=== PATIENT | female | born 1995 | race Caucasian/White ===

== ENCOUNTER 2020-01-30 08:00 | Emergency (ER) | payer MEDICAID, SELFPAY ==
[2020-01-30 08:01] VITALS: BP 135/96; PULSE 92; RESP 14; TEMP 36.9; O2SAT 100; BMI 16.6
--- NOTE | 2020-01-30 08:08 | NURSING ---
NO OLD EKGS
--- NOTE | 2020-01-30 08:25 | RAD_ITS ---
STUDY: X-RAY CHEST REASON FOR EXAM: Female, 24 years old. BACK AND CHEST PAIN SINCE THIS AM. PT WAS MOVING THIS LAST WEEKEND BUT NO KNOWN INJURY TECHNIQUE: Single AP portable view of the chest. COMPARISON: None. FINDINGS: EKG electrodes are seen. Hyperinflation. The lungs are clear. There is no demonstrated pleural abnormality. Normal size heart. Normal mediastinum and harry. Normal visualized pulmonary arteries. Normal visualized aortic arch and descending thoracic aorta. Normal visualized thoracic spine. Normal visualized ribs, clavicles, and shoulders. There is no demonstrated abnormality of the visualized soft tissue structures of the upper abdomen. RAD/Chest 1 View IMPRESSION: Hyperinflation. The lungs are clear. Electronically Signed: Moody Washington, at 8:51 EST , Service support ,
[2020-01-30 08:44] LABS: Absolute Lymphocyte Count 2.25 X10^3/uL (0.83-4.51); Absolute Neutrophil Count 4.1 X10^3/uL (2.0-7.7); Basophil# 0.08 X10^3/uL; Basophil% 1.1 % (0-1); Eosinophil# 0.35 X10^3/uL; Eosinophils% 4.7 % (0-5); Hematocrit 42.9 % (37-47); Hemoglobin 14.7 g/dL (12.0-15.0); Lymphocyte # 2.25 X10^3/ul (4.0); Lymphocyte % 30.4 % (19-41); Mean Corp Hgb Conc 34.3 g/dL (32-36); Mean Corpuscular Volume 87.6 fL (81-99); Mean Platelet Vol. 11.3 fl (6.2-12.0); Monocyte# 0.58 X10^3/uL; Monocyte% 7.8 % (0-10); NRBC Flagged by Analyzer 0 % (0-5); Neutrophil # 4.13 X10^3/uL (2.7-7.7); Neutrophil % 55.7 % (47-70); Platelet Count 331 K/mm3 (150-450); RBC Distribution Width CV 12.1 % (11.6-14.6); White Blood Count 7.4 K/mm3 (4.4-11.0)
[2020-01-30 08:57] LABS: Anion Gap 7 (5-15); BUN 10 mg/dL (7-18); BUN/Creat Ratio 11.2 RATIO (10-20); Calcium,Total 8.3 mg/dL (8.5-10.1); Chloride 113 mmol/L (98-107); Creatinine, Serum 0.89 mg/dL (0.55-1.02); EST Glomerular Filtration Rate 84 mL/min (>60); Est Glom Filt Rate - Afr Amer 102 mL/min (>60); Glucose 79 mg/dL (74-106); Potassium 3.5 mmol/L (3.5-5.1); Sodium Level 141 mmol/L (136-145)
[2020-01-30 09:45] LABS: D-Dimer Quantitative (DVT/PE) <= 0.27 FEU/ug/m (0.27-0.49)
--- NOTE | 2020-01-30 10:08 | ED.VIS.GEN ---
History of Present Illness Chief Complaint: Back Detail of Chief Complaint: Right scapular pain that radiated anteriorly Informant: Patient Onset: Hours Context: Sudden Onset Timing: Continuous Quality: Pain Location: Right scapula radiating to anterior right chest Current Severity: Mild Maximum Severity: Severe Worsened by: Nothing Relieved by: Nothing Associated Symptoms: [place] warm and mild shortness of breath Narrative: Patient is a 24-year-old woman who has no significant past medical history. She does vape. She states she was awakened from sleep with abrupt onset of right scapular pain that radiated anteriorly. She states she felt warm and may be slightly sweaty and slightly nauseated. Pain had been persistent for an hour. Since she still was having pain when her woke up she decided to present to the emergency department. She has no history of PE or DVT. She is on control pills. She denies leg pain, swelling discoloration. She has no history of pneumothorax. She denies intolerance to greasy or fried foods. She denies infectious symptoms. She denies contact with anyone that is been ill recently. Prior similar symptoms: No Recent Illness/Hospitalization: No - Past Medical History (1) No significant past medical history Status: Acute Past Medical History - Allergies and Home Meds Allergies/Adverse Reactions: Allergies risperidone [From Risperdal] Allergy (Verified 01/30/20 08:03) Swelling Sulfa (Sulfonamide Antibiotics) Allergy (Verified 01/30/20 08:03) Anaphylaxis Primary Care Physician: Care Physician,No Primary [Primary Care Provider] - Prior records reviewed: No Past Medical History: None Surgical History: no surgical history Smoking Status: Current every day smoker - States she vapes. Alcohol: None Drugs: None Review of Systems General: Denies: Chills, Fever, Malaise, Subjective, Sweats Eyes: Denies: Visual changes - bilaterally, Blurred Vision - bilaterally ENT: Denies: Rhinorrhea, Sore throat Cardiovascular: Reports: Chest pain - Right anterior. Denies: Palpitations Respiratory: Reports: Dyspnea, Paroxysmal nocturnal dyspnea. Denies: Cough, Sputum, Dyspnea on exertion, Orthopnea Gastrointestinal: Reports: Nausea. Denies: Abdominal pain, Vomiting, Diarrhea, Melena, Hematochezia Genitourinary: Reports: - - No history of renal or ureterolithiasis. Denies: Dysuria, Hematuria, Frequency Musculoskeletal: Reports: Back pain. Denies: Myalgias, Arthralgias, Neck pain, Swelling, Extremity Pain Skin: Denies: Rash, Wounds Neurological: Denies: Headache, Weakness, Parasthesia Endocrine: Denies: Polyuria, Polydipsia Hematologic: Denies: Easy bruising, Easy bleeding Physical Exam Vital Signs/Narrative: Vital Signs Temp Pulse Resp BP Pulse Ox 01/30/20 08:01 98.4 F 92 14 135/96 H 100 Inital Vital Signs reviewed: Yes General: Well nourished, Well developed, No Acute Distress Head: Normocephalic, Atraumatic Eyes: Perrl, EOMI ENT: Moist mucous membranes, No rhinorrhea Neck: Supple, Nontender, No lymphadenopathy, No JVD Cardiovascular: Regular rate, Regular rhythm, No murmurs, Normal S1, Normal S2 Respiratory: No distress, CTA bilaterally, Chest nontender Abdomen: Soft, Nontender, Nondistended, Normal bowel sounds Back: Nontender, Normal Inspection. Negative for: CVA tenderness, Spinal tenderness Extremities: Nontender, No edema, - - There is no asymmetry, swelling, discoloration, leg vein distention, palpable cords or tenderness along the distribution of the deep venous system. Skin: Normal color, No rash, No Trauma. Negative for: Cyanosis, Diaphoresis, Jaundice Neurological: Alert, Oriented x3, Cranial nerves II-XII grossly intact, Normal Strength, Normal Sensation Psychological: Normal affect, Normal Mood Diagnostic/Tx/Re-eval Chest X-Ray - ED: 2 View, Read by ED Physician, Read by Radiologist, - - Patient has evidence of hyper aeration. There is no evidence of effusion, pneumothorax or infiltrate. Cardiac silhouette is normal. Osseous structures are normal. Impressions Chest X-Ray 01/30/20 08:25 IMPRESSION: Hyperinflation. The lungs are clear. Electronically Signed: Moody Padmini, at 8:51 EST , Service support , 01/30/20 08:25 Chest 1 View [RAD] Stat Laboratory Results 01/30/20 01/30/20 01/30/20 08:35 08:35 08:35 WBC 7.4 RBC 4.90 Hgb 14.7 Hct 42.9 MCV 87.6 MCH 30.0 MCHC 34.3 RDW Std Deviation 39.0 RDW Coeff of Brandee 12.1 Plt Count 331 MPV 11.3 Immature Gran % (Auto) 0.300 Neut % (Auto) 55.7 Lymph % (Auto) 30.4 [place] % (Auto) 7.8 Eos % (Auto) 4.7 Baso % (Auto) 1.1 H Absolute Neuts (auto) 4.1 Absolute Lymphs (auto) 2.25 Nucleated RBC % 0 D-Dimer Quant (PE/DVT) <= 0.27 Sodium 141 Potassium 3.5 Chloride 113 H Carbon Dioxide 21.0 Anion Gap 7 BUN 10 Creatinine 0.89 Estim Creat Clear Calc 71.00 Est GFR (MDRD) Af Amer 102 Est GFR (MDRD) Non-Af 84 BUN/Creatinine Ratio 11.2 Glucose 79 Calcium 8.3 L - EKG Initial EKG Interpretation: Sinus Rhythm - Normal sinus rhythm with respiratory variance. Ventricular rate of 73. CT interval 116 ms. QS duration 88 ms. QT duration 3 to 94 ms. [place] to the right. - Medical Decision Making Diagnosis includes pneumothorax, pneumonia, pulmonary embolus, atypical presentation for aortic dissection. Chest x-ray did not reveal evidence of widened mediastinum, pneumothorax or any pulmonary cause. With a negative D-dimer the likelihood for dissection is less than 1%. PE has been ruled out. She is not anemic. Electrolyte normal. Renal function normal. Patient was informed the cause of her pain is unknown. She was discharged home to follow-up with her physician if no improvement in 3 to 5 days. She was prescribed anti-inflammatory for her discomfort. ED Disposition - Plan for ED Patient: Disposition: Home or Assisted Living Diagnosis: Pain of right scapula, Right-sided chest pain Instructions: ED Pain, Acute, Uncertain Cause Prescriptions: Naproxen [Naprosyn] 500 mg PO BID #14 tab Transmission Status: Pending to [facility]/pharmacy #[id number] Referrals: Care Physician,No Primary [Primary Care Provider] - Additional Instructions: Follow-up with your primary care provider if no improvement in 3 to 5 days. The name of your primary care provider is printed on your insurance card.
[2020-01-30 10:29] VITALS: BP 117/82; PULSE 77; RESP 15; O2SAT 100
--- NOTE | 2020-01-30 10:30 | ED.RN ---
IV DC'ED, CATHETER INTACT, SMALL GAUZE DRESSING PLACED. DISCHARGE INSTRUCTIONS GIVEN TO AND REVIEWED WITH PATIENT, PATIENT DENIES QUESTIONS OR CONCERNS AND VOICES UNDERSTANDING OF DISCHARGE INSTRUCTIONS. PT AMBULATES OUT OF ROOM WITHOUT DIFFICULTY.
== END 2020-01-30 10:30 | disposition home or self-care (01) ==
PROVIDERS: Emergency Provider Emergency Medicine
DX: M25.511 Pain in right shoulder (principal); R07.89 Other chest pain; F17.290 Nicotine dependence, other tobacco product, uncomplicated
CPT/HCPCS: 71045; 80048; 85025; 85379; 99283; A4216

== ENCOUNTER 2020-03-09 20:56 | Emergency (ER) | payer MEDICAID, SELFPAY ==
[2020-03-09 20:57] VITALS: BP 128/100; PULSE 109; RESP 16; TEMP 37.3; O2SAT 99; BMI 17.2
--- NOTE | 2020-03-09 22:08 | CT_ITS ---
LLQ PAIN/CONSTIPATION/BLOOD IN STOOL. Hx of seizures and cardiac ablation. Not TECHNIQUE: Helically acquired images were obtained of the abdomen and pelvis following IV contrast. A radiation dose optimization technique was used for this scan. IV Contrast dosage and agent: 75mL Isovue-370 Oral contrast: None. COMPARISON: None FINDINGS: # of images incl. paperwork: 333 LOWER CHEST: Lung bases are clear. No cardiomegaly or pericardial effusion observed. LIVER: Homogeneous. No focal mass. GALLBLADDER AND BILIARY TREE: No calcified gallstones. There is no gallbladder distension or wall edema. No intra- or extrahepatic biliary ductal dilation. KIDNEYS AND URETERS: Extrarenal pelvis is seen bilaterally but greater on the left. No stones are seen within the ureters. ADRENAL GLANDS: Non-enlarged. SPLEEN: Normal size without focal cystic or solid mass. PANCREAS: No focal cystic or solid mass. BOWEL: The stomach is poorly distended Small bowel filled but not dilated. No significant wall thickening Retained fecal material is seen throughout the colon. This can be seen with constipation. Correlate clinically The appendix is not visualized no diverticulitis LYMPH NODES: No enlarged mesenteric or retroperitoneal lymph nodes. PERITONEUM: No ascites or free air. No other fluid collection. VESSELS: Aorta is non-dilated. URINARY BLADDER: Incompletely distended, otherwise grossly unremarkable. REPRODUCTIVE ORGANS: No pelvic masses or pelvic ascites. ABDOMINAL WALL: No discrete abdominal or pelvic wall hernia observed. BONES: No acute osseous abnormality CT/Abdomen/Pelvis W IV Cont ONLY IMPRESSION: Prominent amount of retained fecal material throughout the colon. This can be seen with constipation No diverticulitis Individualized dose optimization techniques were used for this CT. at 2351 Reported and signed by: Shira Lewis DO Electronically Signed: Shira Lewis DO at 23:50 EST Tel , Service support ,
[2020-03-09] MEDS: 0.9% Normal Saline 1,000 ML 999 ML IV (22:19)
[2020-03-09] MEDS: Ondansetron 4 MG/2 ML Vial IV (22:20)
[2020-03-09 22:26] LABS: Absolute Lymphocyte Count 3.21 X10^3/uL (0.83-4.51); Absolute Neutrophil Count 3.6 X10^3/uL (2.0-7.7); Basophil# 0.06 X10^3/uL; Basophil% 0.8 % (0-1); Eosinophil# 0.18 X10^3/uL; Eosinophils% 2.3 % (0-5); Hematocrit 38.3 % (37-47); Hemoglobin 13.2 g/dL (12.0-15.0); Lymphocyte # 3.21 X10^3/ul (4.0); Lymphocyte % 41.3 % (19-41); Mean Corp Hgb Conc 34.5 g/dL (32-36); Mean Corpuscular Hgb 29.7 pg (27.0-32.0); Mean Corpuscular Volume 86.3 fL (81-99); Mean Platelet Vol. 11.4 fl (6.2-12.0); Monocyte# 0.69 X10^3/uL; Monocyte% 8.9 % (0-10); NRBC Flagged by Analyzer 0 % (0-5); Neutrophil # 3.61 X10^3/uL (2.7-7.7); Neutrophil % 46.4 % (47-70); Platelet Count 306 K/mm3 (150-450); RBC Distribution Width CV 11.9 % (11.6-14.6); RBC Distribution Width SD 37.9 fl (35.1-43.9); Red Blood Count 4.44 M/mm3 (4.2-5.4); White Blood Count 7.8 K/mm3 (4.4-11.0)
[2020-03-09 22:53] LABS: ALB/GLOB Ratio 1.4 RATIO (0.9-2.4); AST(SGOT) 9 U/L (15-37); Alanine Aminotransfer ALT/SGPT 13 U/L (13-56); Albumin, Serum 3.8 g/dL (3.2-5.0); Alkaline Phosphatase 69 U/L (45-117); Anion Gap 5 (5-15); BUN 12 mg/dL (7-18); BUN/Creat Ratio 12.4 RATIO (10-20); Calcium,Total 8.2 mg/dL (8.5-10.1); Chloride 112 mmol/L (98-107); Creatinine, Serum 0.97 mg/dL (0.55-1.02); EST Glomerular Filtration Rate 76 mL/min (>60); Est Glom Filt Rate - Afr Amer 92 mL/min (>60); Estimated Creatinine Clearance 67.35 ml/min; Globulin 2.8 g/dL (2.2-4.2); Glucose 86 mg/dL (74-106); Lipase 170 U/L (73-393); Potassium 3.6 mmol/L (3.5-5.1); Protein, Total 6.6 g/dL (6.4-8.2); Sodium Level 141 mmol/L (136-145)
--- NOTE | 2020-03-09 22:55 | ED.DCSUM_ITS ---
History of Present Illness Chief Complaint: Constipation Informant: Patient - Abdominal Pain/Flank Pain Onset: Today Timing: Continuous Quality: Cramping Location: LLQ Narrative: Patient is a 24-year-old female with history of SVT and epilepsy, [place] seizures, presenting with abdominal pain and constipation. Patient states she has been feeling constipated since Tuesday but started having stomach pain today. States the pain is an issue in the center of her stomach but instead localized more to her left lower quadrant. She did take some [id number] laxatives and did have a bowel movement today. When this happened she did have bright red blood streaking the stool. She then started to feel nauseous and shaky with this. She is also had worsening pain in her left lower quadrant. She describes as cramping in nature. She had some mild associated nausea since yesterday. She denies any fever or chills. She denies any personal history of family history of inflammatory bowel disease. She denies any lightheadedness. No other complaints at this time. Past Medical History - Allergies and Home Meds Allergies/Adverse Reactions: Allergies risperidone [From Risperdal] Allergy (Verified 03/09/20 20:59) Swelling Sulfa (Sulfonamide Antibiotics) Allergy (Verified 03/09/20 20:59) Anaphylaxis Primary Care Physician: Karlee Barnes MD [Primary Care Provider] - Past Medical History: - - Epilepsy, SVT Surgical History: no surgical history Lives: Spouse/ Significant Other Smoking Status: Current every day smoker Review of Systems General: Denies: Chills, Fever, Sweats Eyes: Denies: Visual changes - bilaterally, Diplopia ENT: Denies: Rhinorrhea, Sore throat Cardiovascular: Denies: Chest pain, Palpitations Respiratory: Denies: Dyspnea, Cough, Dyspnea on exertion Gastrointestinal: Reports: Abdominal pain, Nausea, Constipation, - - Bright red blood per rectum. Denies: Vomiting, Diarrhea, Melena, Hematochezia Genitourinary: Denies: Dysuria, Hematuria, Frequency Musculoskeletal: Denies: Back pain, Extremity Pain Skin: Denies: Rash, Wounds Neurological: Denies: Headache, Weakness, Numbness Physical Exam Vital Signs/Narrative: Vital Signs Temp Pulse Resp BP Pulse Ox 03/09/20 20:57 99.2 F H 109 H 16 128/100 H 99 Inital Vital Signs reviewed: Yes General: Well nourished, Well developed, No Acute Distress Head: Normocephalic, Atraumatic Eyes: Perrl, EOMI ENT: Moist mucous membranes, No rhinorrhea Neck: Supple, Nontender Cardiovascular: Regular rate, Regular rhythm, No murmurs Respiratory: No distress, CTA bilaterally, Chest nontender Abdomen: Soft, Nondistended, Normal bowel sounds, Tender - Left lower quadrant. Negative for: Guarding, Rebound tenderness Back: Nontender, Normal Inspection. Negative for: CVA tenderness Extremities: Nontender, No edema Skin: Normal color, No rash Neurological: Alert, Oriented x3, Cranial nerves II-XII grossly intact, Normal Strength, Normal Sensation Psychological: Normal affect, Normal Mood Diagnostic/Tx/Re-eval Clinical Impression(s) from Imaging Studies Abdomen/Pelvis CT 03/09/20 22:08 IMPRESSION: Prominent amount of retained fecal material throughout the colon. This can be seen with constipation No diverticulitis Individualized dose optimization techniques were used for this CT. at 2351 Reported and signed by: Shira Lewis DO Electronically Signed: Shira Lewis DO at 23:50 EST Tel , Service support , Laboratory Data 03/09/20 03/09/20 03/09/20 22:19 22:19 23:00 WBC 7.8 RBC 4.44 Hgb 13.2 Hct 38.3 MCV 86.3 MCH 29.7 MCHC 34.5 RDW Std Deviation 37.9 RDW Coeff of Brandee 11.9 Plt Count 306 MPV 11.4 Immature Gran % (Auto) 0.300 Neut % (Auto) 46.4 L Lymph % (Auto) 41.3 H [place] % (Auto) 8.9 Eos % (Auto) 2.3 Baso % (Auto) 0.8 Absolute Neuts (auto) 3.6 Absolute Lymphs (auto) 3.21 Nucleated RBC % 0 Sodium 141 Potassium 3.6 Chloride 112 H Carbon Dioxide 24.0 Anion Gap 5 BUN 12 Creatinine 0.97 Estim Creat Clear Calc 67.35 Est GFR (MDRD) Af Amer 92 Est GFR (MDRD) Non-Af 76 BUN/Creatinine Ratio 12.4 Glucose 86 Calcium 8.2 L Total Bilirubin 0.30 AST 9 L ALT 13 Alkaline Phosphatase 69 Total Protein 6.6 Albumin 3.8 Globulin 2.8 Albumin/Globulin Ratio 1.4 Lipase 170 Urine Color Yellow Urine Clarity Clear Urine pH 6.0 Ur Specific [place] 1.015 Urine Protein Negative Urine Glucose (UA) Normal Urine Ketones Negative Urine Occult Blood Negative Urine Nitrite Negative Urine Bilirubin Negative Urine Urobilinogen Normal Ur Leukocyte Esterase 25 H Urine RBC 0 SEEN Urine WBC 0-5 SEEN Ur Squamous Epith Cells 0-5 SEEN Urine Bacteria 0 SEEN Urine Mucus 1+ Urine Test Negative - Medical Decision Making Patient is evaluated for worsening pain in her left lower quadrant. Associated constipation and today had bright red blood per rectum with a bowel movement. Her abdomen is tender in the left lower quadrant she is mildly tachycardic. Likely this is just hemorrhoidal bleeding with constipation however diverticulitis another acute infectious on the differential so therefore I will check blood work and a CT scan. Patient lab work is largely unremarkable and CT shows moderate fecal retention but no other acute process. Patient is already on MiraLAX and her doctor had prescribed her discoidal which did not start taking. We will also give her prescription for mag citrate to use as needed. Patient is counseled on symptomatic hemorrhoidal treatment. Patient is counseled on signs and symptoms requiring return to the emergency room. Patient verbalizes agreement and understand this plan. Patient discharged home in stable and improved condition. ED Disposition - Plan for ED Patient: Disposition: Home or Assisted Living Diagnosis: Constipation, Bleeding hemorrhoid Instructions: ED Constipation (Adult), ED Hemorrhoids Prescriptions: Magnesium Citrate [Citrate Of Magnesia] 300 ml PO X1 #1 bottle Transmission Status: Pending to [id number] Referrals: Karlee Barnes MD [Primary Care Provider] -
[2020-03-09 23:11] LABS: Bacteria 0 SEEN /hpf (None Seen); Red Blood Cells-Urine 0 SEEN /hpf (0-5)
[2020-03-09 23:15] LABS: Color, Urine Yellow (Yellow); Glucose, Dipstick Normal (Normal); Ketone-Dipstick Negative (Negative); Leukocyte Esterase-Dipstick 25 /ul (Negative); Nitrite-Dipstick Negative (Negative); Occult Blood-Urine Negative /ul (Negative); Protein-Dipstick Negative (Negative); Specific Gravity, Urine 1.015 (1.002-1.030); Urine Bilirubin Dipstick Negative (Negative); Urine Clarity Clear (Clear); Urine Urobilinogen Normal (Normal)
[2020-03-09 23:18] LABS: Internal QC Validated? YES +Cl - CLEAR BKGD; Pregnancy, Urine Negative Negative
[2020-03-09 23:20] LABS: Squamous Epithelial Cells - UA 0-5 SEEN /hpf (5-10); White Blood Cells 0-5 SEEN /hpf (0-5)
[2020-03-09 23:21] LABS: Mucous, Urine 1+ /hpf (<or=2+)
[2020-03-10 00:35] VITALS: BP 111/82; PULSE 73; RESP 16
== END 2020-03-10 00:36 | disposition home or self-care (01) ==
PROVIDERS: Emergency Provider Emergency Medicine; PCP Counselor Mental Health
DX: K59.00 Constipation, unspecified (principal); K64.9 Unspecified hemorrhoids; F17.200 Nicotine dependence, unspecified, uncomplicated
CPT/HCPCS: 74177; 80053; 81001; 81025; 83690; 85025; 96361; 96374; 99283; J7030; Q9967; A4216; J2405

== ENCOUNTER 2020-03-20 22:40 | Emergency (ER) | payer MEDICAID, SELFPAY ==
[2020-03-20 22:43] VITALS: BP 127/100; PULSE 93; RESP 20; TEMP 37.2; O2SAT 95; BMI 16.9
[2020-03-20] MEDS: 0.9% Normal Saline 1,000 ML 1000 ML IV (23:04)
[2020-03-20 23:06] LABS: Absolute Lymphocyte Count 3.08 X10^3/uL (0.83-4.51); Absolute Neutrophil Count 3.7 X10^3/uL (2.0-7.7); Basophil# 0.09 X10^3/uL; Basophil% 1.1 % (0-1); Eosinophil# 0.21 X10^3/uL; Eosinophils% 2.7 % (0-5); Hematocrit 40.2 % (37-47); Hemoglobin 13.5 g/dL (12.0-15.0); Lymphocyte # 3.08 X10^3/ul (4.0); Lymphocyte % 39.2 % (19-41); Mean Corp Hgb Conc 33.6 g/dL (32-36); Mean Corpuscular Hgb 29.1 pg (27.0-32.0); Mean Corpuscular Volume 86.6 fL (81-99); Mean Platelet Vol. 11.3 fl (6.2-12.0); Monocyte# 0.71 X10^3/uL; NRBC Flagged by Analyzer 0 % (0-5); Neutrophil # 3.74 X10^3/uL (2.7-7.7); Neutrophil % 47.7 % (47-70); Platelet Count 347 K/mm3 (150-450); RBC Distribution Width SD 38.5 fl (35.1-43.9); Red Blood Count 4.64 M/mm3 (4.2-5.4); White Blood Count 7.9 K/mm3 (4.4-11.0)
[2020-03-20 23:21] LABS: ALB/GLOB Ratio 1.3 RATIO (0.9-2.4); AST(SGOT) 5 U/L (15-37); Alanine Aminotransfer ALT/SGPT 14 U/L (13-56); Albumin, Serum 4.1 g/dL (3.2-5.0); Alkaline Phosphatase 81 U/L (45-117); Anion Gap 7 (5-15); BUN 9 mg/dL (7-18); BUN/Creat Ratio 10.8 RATIO (10-20); Calcium,Total 8.2 mg/dL (8.5-10.1); Chloride 112 mmol/L (98-107); Creatinine, Serum 0.84 mg/dL (0.55-1.02); EST Glomerular Filtration Rate 90 mL/min (>60); Est Glom Filt Rate - Afr Amer 109 mL/min (>60); Estimated Creatinine Clearance 76.29 ml/min; Globulin 3.1 g/dL (2.2-4.2); Glucose 91 mg/dL (74-106); Potassium 3.1 mmol/L (3.5-5.1); Protein, Total 7.2 g/dL (6.4-8.2); Sodium Level 142 mmol/L (136-145)
--- NOTE | 2020-03-20 23:45 | ED.RN ---
Addendum entered by Jazmín Granados RN 03/20/20 23:52: Seizure activity stopped at 1152pm. Original Note: Patient having a seizure and at bedside. Ativan 1mg given at 11:49pm. Airway continues to stay clear. No vomiting.
[2020-03-20] MEDS: LORazepam 2 MG/ML Syringe 1 MG IV (23:49)
--- NOTE | 2020-03-20 23:53 | ED.DCSUM_ITS ---
- ER Visit Summary Date of Service: 03/20/20 Chief Complaint: Seizure History of Present Illness: The patient is a 24 F who presents with a seizure that occurred today. Patient states this lasted at least 5 minutes. Patient states it is similar to prior seizures. Patient states she does not remember much about the seizure. Patient states she was told it was generalized and tonic-clonic. Patient did not bite her tongue. Patient denies any incontinence of urine or stool. Patient does admit to some back pain and muscle aches which are typical after her seizures. Patient denies any headaches. Patient denies any nausea or vomiting. Patient denies any recent fevers or chills. Physical Examination: Vital signs are stable. Patient is afebrile. Patient is in no acute distress. Oral mucosa is pink and moist. Neck is supple. Trachea is midline. There is no JVD noted. Heart was regular rate and rhythm. Lungs are clear and equal bilaterally. Abdomen is soft. Bowel sounds are normal. There is no tenderness. There is no rebound or guarding noted. Skin is warm dr y. Cranial nerves II through XII are intact. There are no focal motor or sensory deficits noted. Extremities are intact. There is no calf tenderness or edema. Test Results: CBC and comprehensive metabolic profile were obtained. Potassium was 3.1. The remaining labs were within normal limits. Topamax level was ordered but this is a send out and will not be returned tonight. Emergency Department Course and Treatment: Patient was given a dose of oral potassium here. Patient had a witnessed seizure here in the emergency depar tment. Patient states she felt like her seizure was coming on. Patient's boyfriend was in the room with her who helped her into the bed. Patient started shaking after that. Patient was given a dose of Ativan. Patient stopped having a seizure. Patient is awake and alert. Patient is answering questions. Patient feels better. Patient was advised that her Topamax level will not be back tonight and she needs to follow-up with her primary care physician and neurologist for this result. Patient understands and is agreeable with the plan. All questions were answered. Disposition: Discharge home Impression: Seizure disorder with breakthrough seizure This note was generated with Material Mixation software. It may contain incorrect words, spelling, and punctuation that were not noted in review of the chart prior to signing ED Disposition - Plan for ED Patient: Disposition: Home or Assisted Living Diagnosis: Breakthrough seizure Instructions: ED Seizure, Recurrent (Adult) Referrals: Karlee Barnes MD [Primary Care Provider] - 3-5 Days
--- NOTE | 2020-03-20 23:54 | ED.RN ---
Pt seizures stopped. pt moaning through the seizure. suction set up at bedside.
[2020-03-20 23:56] VITALS: BP 114/93; PULSE 108; RESP 22; O2SAT 98
[2020-03-21 00:05] VITALS: BP 111/84; PULSE 106; RESP 21; O2SAT 98
[2020-03-21 00:15] VITALS: BP 109/78; PULSE 96; RESP 17; O2SAT 99
--- NOTE | 2020-03-21 00:41 | ED.RN ---
Pt very chatty. pt up to bathroom. denies any complaints at this time. no more seizure activity at this time.
[2020-03-21 01:02] VITALS: BP 114/81; PULSE 103; RESP 18; O2SAT 99
[2020-03-25 15:01] LABS: Topiramate 1.8 ug/mL (2.0-25.0)
== END 2020-03-21 01:04 | disposition home or self-care (01) ==
PROVIDERS: Emergency Provider Emergency Medicine; PCP Counselor Mental Health
DX: G40.909 Epilepsy, unspecified, not intractable, without status epilepticus (principal); Z79.899 Other long term (current) drug therapy
CPT/HCPCS: 80053; 80201; 85025; 96361; 96374; 99285; J7030; A4216

== ENCOUNTER 2020-04-13 20:45 | Emergency (ER) | payer MEDICAID, SELFPAY ==
[2020-04-13 20:45] VITALS: BP 125/95; PULSE 119; RESP 18; TEMP 37.1; O2SAT 100; BMI 16.6
--- NOTE | 2020-04-13 21:11 | CT_ITS ---
STUDY: CT ABDOMEN AND PELVIS WITH CONTRAST REASON FOR EXAM: Female, 24 years old. Abdominal pain -- IV PO Contrast RADIATION DOSAGE (If Supplied By Facility): CTDIvol = ( 10.99 ) mGy, DLP = ( 250.10 ) mGycm TECHNIQUE: Transaxial images were obtained from the dome of the diaphragm to the symphysis pubis with oral contrast. Oral and amp; IV Gastrografin and amp; 100mL Isovue-370 was administered. Sagittal and coronal images were reconstructed. Individualized dose optimization techniques were used for this CT. COMPARISON: 03/09/2020. FINDINGS: The visualized lung bases are unremarkable. The visualized portions of the heart are within normal limits. Normal liver. Normal gallbladder and extrahepatic biliary system. Normal spleen. Normal pancreas. Normal bilateral adrenal glands. Normal right kidney. Normal left kidney. Normal visualized stomach. There is fluid throughout the entire small and large bowel as far as the rectosigmoid. This is an atypical appearance consistent with nonspecific enterocolitis and diarrheal disorders. No evidence for obstruction. Normal appendix. Normal abdominal aorta. Normal inferior vena cava. Normal retroperitoneum. Normal urinary bladder. Normal visualized uterus. Normal abdominal wall. Normal osseous structures. CT/Abdomen/Pelvis WITH Contrast IMPRESSION: Small and large bowel are completely filled with fluid consistent with nonspecific enterocolitis and diarrheal disorders. Electronically Signed: Anoop Arambula MD at 23:36 EST , Service support ,
--- NOTE | 2020-04-13 21:12 | ED.DCSUM_ITS ---
- ER Visit Summary Date of Service: 04/13/20 Chief Complaint: Abdominal pain History of Present Illness: The patient is a 24 F presenting with abdominal pain. Patient states she has been having abdominal pain for over a month. She has been seen by her primary care provider who has referred her to GI. Her appointment is in a couple of weeks. She is scheduled to have an upper and lower GI x-ray tomorrow. She states that she has been on a liquid diet because of this test and then took mag citrate tonight. She states she did not have a bowel movement after the mag citrate but started having abdominal cramping. She states she had a normal bowel movement earlier today. She denies blood in her stool. Denies fever. Denies urinary complaints. Denies other complaints. Physical Examination: Vitals are stable. Patient is afebrile. Alert no acute distress. HEENT exam is unremarkable. Neck is supple. Lungs are clear and equal bilaterally. Heart is regular rate and rhythm. Abdomen is soft diffuse tenderness with no rebound or guarding Extremities are unremarkable. Skin is warm and dry. Remainder of exam is unremarkable. Emergency Department Course and Treatment: Patient was given IV fluids, Zofran. CBC, chemistries unremarkable. Urinalysis unremarkable. hCG negative. CT abdomen pelvis shows small and large bowel are completely filled with fluid consistent with nonspecific enterocolitis and diarrheal disorders. Patient took mag citrate just prior to arrival. She had diarrhea while in the emergency department. She states it has now slowed down on re-evaluation and she is feeling improved. She was given Bentyl with improvement of her abdominal cramping. She will follow-up with GI testing and her GI appointment. She is advised signs and symptoms for which to return to the ED. Disposition: Discharge home Impression: Abdominal pain This note was generated with AD[employer] dictation software. It may contain incorrect words, spelling, and punctuation that were not noted in review of the chart prior to signing ED Disposition - Plan for ED Patient: Instructions: ED Abdominal Pain Unkn Cause Fem Prescriptions: Dicyclomine HCl [Bentyl] 20 mg PO TIDAC #20 cap Prescription Printed Referrals: NOT,DEFINED [NON-STAFF] -
[2020-04-13] MEDS: 0.9% Normal Saline 1,000 ML 1000 ML IV (21:28)
[2020-04-13] MEDS: Ondansetron 4 MG/2 ML Vial IV (21:28)
[2020-04-13 21:32] LABS: Bacteria 0 SEEN /hpf (None Seen); Mucous, Urine 0 SEEN /hpf (<or=2+); Red Blood Cells-Urine 0 SEEN /hpf (0-5); Squamous Epithelial Cells - UA 0 SEEN /hpf (5-10); White Blood Cells 0 SEEN /hpf (0-5)
[2020-04-13 21:33] LABS: Color, Urine Yellow (Yellow); Glucose, Dipstick Normal (Normal); Ketone-Dipstick 5 mg/dl (Negative); Leukocyte Esterase-Dipstick Negative /ul (Negative); Nitrite-Dipstick Negative (Negative); Occult Blood-Urine Negative /ul (Negative); Protein-Dipstick Negative (Negative); Urine Bilirubin Dipstick Negative (Negative); Urine Clarity Turbid (Clear); Urine Urobilinogen Normal (Normal)
[2020-04-13 21:37] LABS: Absolute Lymphocyte Count 2.86 X10^3/uL (0.83-4.51); Absolute Neutrophil Count 3.7 X10^3/uL (2.0-7.7); Basophil# 0.07 X10^3/uL; Basophil% 0.9 % (0-1); Eosinophil# 0.22 X10^3/uL; Eosinophils% 2.9 % (0-5); Hematocrit 43.9 % (37-47); Hemoglobin 14.9 g/dL (12.0-15.0); Lymphocyte # 2.86 X10^3/ul (4.0); Lymphocyte % 37.6 % (19-41); Mean Corp Hgb Conc 33.9 g/dL (32-36); Mean Corpuscular Hgb 30.2 pg (27.0-32.0); Mean Corpuscular Volume 88.9 fL (81-99); Mean Platelet Vol. 11.5 fl (6.2-12.0); Monocyte# 0.72 X10^3/uL; Monocyte% 9.5 % (0-10); NRBC Flagged by Analyzer 0 % (0-5); Neutrophil # 3.71 X10^3/uL (2.7-7.7); Neutrophil % 48.8 % (47-70); Platelet Count 332 K/mm3 (150-450); RBC Distribution Width CV 12.2 % (11.6-14.6); RBC Distribution Width SD 38.9 fl (35.1-43.9); Red Blood Count 4.94 M/mm3 (4.2-5.4); White Blood Count 7.6 K/mm3 (4.4-11.0)
[2020-04-13 21:43] LABS: Amorphous Sediment 2+
[2020-04-13 21:49] LABS: Internal QC Validated? YES +Cl - CLEAR BKGD; Pregnancy, Serum, hCG Quali. NEGATIVE Negative
[2020-04-13 21:54] LABS: ALB/GLOB Ratio 1.4 RATIO (0.9-2.4); AST(SGOT) 9 U/L (15-37); Alanine Aminotransfer ALT/SGPT 14 U/L (13-56); Albumin, Serum 4.5 g/dL (3.2-5.0); Alkaline Phosphatase 86 U/L (45-117); Anion Gap 10 (5-15); BUN 9 mg/dL (7-18); BUN/Creat Ratio 12.7 RATIO (10-20); Calcium,Total 8.5 mg/dL (8.5-10.1); Chloride 112 mmol/L (98-107); Creatinine, Serum 0.71 mg/dL (0.55-1.02); EST Glomerular Filtration Rate 109 mL/min (>60); Est Glom Filt Rate - Afr Amer 132 mL/min (>60); Globulin 3.2 g/dL (2.2-4.2); Glucose 83 mg/dL (74-106); Lipase 159 U/L (73-393); Potassium 3.6 mmol/L (3.5-5.1); Protein, Total 7.7 g/dL (6.4-8.2); Sodium Level 142 mmol/L (136-145)
[2020-04-13] MEDS: Dicyclomine 20 MG/2 ML Vial IM (22:46)
[2020-04-13 23:26] VITALS: BP 102/74; PULSE 87; RESP 16; O2SAT 100
--- NOTE | 2020-04-13 23:43 | ED.DEP ---
ED Disposition - Plan for ED Patient: Instructions: ED Abdominal Pain Unkn Cause Fem Prescriptions: Dicyclomine HCl [Bentyl] 20 mg PO TIDAC #20 cap Prescription Printed Referrals: NOT,DEFINED [NON-STAFF] -
[2020-04-14 00:09] VITALS: BP 102/74; PULSE 87; RESP 16; O2SAT 100
== END 2020-04-14 00:10 | disposition home or self-care (01) ==
LOC: ED 21:24
PROVIDERS: Emergency Provider Emergency Medicine
DX: R10.84 Generalized abdominal pain (principal)
CPT/HCPCS: 74177; 80053; 81001; 83690; 84703; 85025; 96361; 96372; 96374; 99283; J7030; Q9967; A4216; J2405

== ENCOUNTER 2020-05-11 17:40 | Emergency (ER) | payer MEDICAID, SELFPAY ==
[2020-05-11 17:41] VITALS: BP 141/93; PULSE 97; RESP 16; TEMP 37.2; O2SAT 100; BMI 16.6
[2020-05-11] MEDS: 0.9% Normal Saline 1,000 ML 1000 ML IV (18:15)
[2020-05-11] MEDS: Ketorolac 15 MG/ML Vial IV (18:15)
[2020-05-11] MEDS: Ondansetron 4 MG/2 ML Vial IV (18:15)
--- NOTE | 2020-05-11 18:24 | ED.DCSUM_ITS ---
- ER Visit Summary Date of Service: 05/11/20 Chief Complaint: Vaginal bleeding History of Present Illness: The patient is a 24 F who goes to a [employer] in [place]. Her primary care physician is Dr. Dixon. She has never been . She has been on Depo for years, but had her last shot on January 02. Patient reports she has vaginal bleeding that began yesterday. It is much heavier than typical. She is having to change her tampon every 2 hours. She complains of a sharp cramping suprapubic pain instead of 10 worst 5-10 currently. Is worsened by movement. Is relieved by Pamprin. Denies any dysuria frequency. No other complaints. Physical Examination: Vitals: Stable. Afebrile. General: Well-nourished and well-developed. Head: Normocephalic atraumatic. Neck: Supple, no lymphadenopathy. No JVD. Nontender. Cardiovascular: Regular rate and rhythm. No murmurs. Respiratory: No respiratory distress. Clear to auscultation bilaterally. Abdominal: Soft, mild suprapubic tenderness to palpation, nondistended, normal bowel sounds. No guarding, rebound, or peritoneal signs. Pelvic: Refused. Back: Nontender. Extremities: Nontender, no edema. Skin: Normal color, no rash. Neurologic: Alert and oriented ?3. Cranial nerves II through XII are intact. Normal strength and sensation. Psych: Normal affect. Test Results: CBC is normal. Hemoglobin is 13.3. Chem-7 shows potassium of 3.1. Chloride is 109 and calcium is 8.1. Serum test is negative. Emergency Department Course and Treatment: Patient had an IV placed. She is given a liter normal saline. She given Toradol and Zofran IV. She is resting more comfortably. I had a discussion with the patient that this. Is likely so heavy because she was on Depo for quite some time. Treatment Plan: Patient will be discharged instructions to eat high potassium foods. Push fluids. Follow-up with her management engineer in 2 to 3 days if not improving. Return to the emergency department for any worsening symptoms. Disposition: To home in improved and stable condition. Impression: 1. Dysfunctional uterine bleeding. This note was generated with Peerly[employer] dictation software. It may contain incorrect words, spelling, and punctuation that were not noted in review of the chart prior to signing ED Disposition - Plan for ED Patient: Instructions: ED Dysfunctional Uterine Bleeding Referrals: Stevie Dixon NP, [facility] [Primary Care Provider] - Additional Instructions: Follow-up with your management engineer in 2 to 3 days if not improving. Return to the emergency department if you are having to change her pad more than 4 times an hour for more than 4 hours in a row.
[2020-05-11 18:26] LABS: Absolute Lymphocyte Count 2.36 X10^3/uL (0.83-4.51); Absolute Neutrophil Count 3.7 X10^3/uL (2.0-7.7); Basophil# 0.06 X10^3/uL; Basophil% 0.9 % (0-1); Eosinophil# 0.11 X10^3/uL; Eosinophils% 1.6 % (0-5); Hematocrit 39.6 % (37-47); Hemoglobin 13.3 g/dL (12.0-15.0); Lymphocyte # 2.36 X10^3/ul (4.0); Lymphocyte % 34.4 % (19-41); Mean Corp Hgb Conc 33.6 g/dL (32-36); Mean Corpuscular Hgb 29.5 pg (27.0-32.0); Mean Corpuscular Volume 87.8 fL (81-99); Monocyte# 0.57 X10^3/uL; Monocyte% 8.3 % (0-10); NRBC Flagged by Analyzer 0 % (0-5); Neutrophil # 3.74 X10^3/uL (2.7-7.7); Neutrophil % 54.5 % (47-70); Platelet Count 273 K/mm3 (150-450); RBC Distribution Width CV 12.2 % (11.6-14.6); RBC Distribution Width SD 39.1 fl (35.1-43.9); Red Blood Count 4.51 M/mm3 (4.2-5.4); White Blood Count 6.9 K/mm3 (4.4-11.0)
[2020-05-11 18:36] LABS: Internal QC Validated? YES +Cl - CLEAR BKGD; Pregnancy, Serum, hCG Quali. NEGATIVE Negative
[2020-05-11 18:40] LABS: Anion Gap 7 (5-15); BUN 9 mg/dL (7-18); BUN/Creat Ratio 13.7 RATIO (10-20); Calcium,Total 8.1 mg/dL (8.5-10.1); Chloride 109 mmol/L (98-107); Creatinine, Serum 0.66 mg/dL (0.55-1.02); EST Glomerular Filtration Rate 119 mL/min (>60); Est Glom Filt Rate - Afr Amer 144 mL/min (>60); Estimated Creatinine Clearance 95.74 ml/min; Glucose 96 mg/dL (74-106); Potassium 3.1 mmol/L (3.5-5.1); Sodium Level 143 mmol/L (136-145)
[2020-05-11 19:01] VITALS: RESP 16
== END 2020-05-11 19:02 | disposition home or self-care (01) ==
LOC: ED 18:09
PROVIDERS: Emergency Provider Emergency Medicine; PCP Nurse Practitioner Family
DX: N93.8 Other specified abnormal uterine and vaginal bleeding (principal); F17.290 Nicotine dependence, other tobacco product, uncomplicated
CPT/HCPCS: 80048; 84703; 85025; 96361; 96374; 96375; 99283; J7030; A4216; J2405

== ENCOUNTER 2020-05-19 04:26 | Emergency (ER) | payer MEDICAID, SELFPAY ==
[2020-05-19 04:27] VITALS: BP 122/87; PULSE 92; RESP 16; TEMP 36.8; O2SAT 98; BMI 17.9
--- NOTE | 2020-05-19 04:34 | EKG12_ITS ---
Test Reason : SEIZURES Blood Pressure : / mmHG Vent. Rate : 073 BPM Atrial Rate : 073 BPM P-R Int : 128 ms QRS Dur : 094 ms QT Int : 412 ms P-R-T Axes : 071 085 -17 degrees QTc Int : 453 ms Sinus rhythm with Blocked Premature atrial complexes Incomplete right bundle branch block Nonspecific T wave abnormality Abnormal ECG Confirmed by KENYA HARP, JUSTIN ([id number]), newspaper editor managing KI OSEGUERA ([id number]) on 05/21/2020 7:57:09 AM Referred By: BRITTNEY Confirmed By:JUSTIN ZAMBRANO MD
--- NOTE | 2020-05-19 04:36 | ED.VIS.GEN ---
History of Present Illness Chief Complaint: Seizure Narrative: Patient presenting for evaluation secondary to syncope versus seizure. Patient has an underlying history of epilepsy, is on Topamax. Patient states that yesterday evening she and some family members were drinking to celebrate the . She reports that she also concomitantly has been having a abnormal 10-day long heavy menstrual cycle, that recently has somewhat slowed down but is still continuing. Patient states that this evening she got up to go to the bathroom. She was having some abdominal pain and nausea. She reports that she got into the bathroom and then woke up on the floor after she either passed out or potentially had a seizure. There was no tongue biting. There was no loss of bowel or bladder continence. Patient denies that there was any preceding chest pain palpitations or shortness of breath. She denies any personal history of DVT or PE or any risk factors of such. She reports that she still has some lower abdominal discomfort. Review of systems otherwise negative. Past Medical History - Allergies and Home Meds Allergies/Adverse Reactions: Allergies risperidone [From Risperdal] Allergy (Verified 05/11/20 17:43) Swelling Sulfa (Sulfonamide Antibiotics) Allergy (Verified 05/11/20 17:43) Anaphylaxis Primary Care Physician: Stevie Dixon NP, [employer] [Primary Care Provider] - Prior records reviewed: Yes Past Medical History: - - Past history of seizures Surgical History: no surgical history Smoking Status: Current every day smoker Alcohol: Occasional Drugs: None Review of Systems All systems negative except as indicated General: Denies: Chills, Fever, Sweats Eyes: Denies: Visual changes - bilaterally, Diplopia ENT: Denies: Rhinorrhea, Sore throat Cardiovascular: Reports: - - Syncope Respiratory: Denies: Dyspnea, Cough, Dyspnea on exertion Gastrointestinal: Reports: Abdominal pain, Nausea Genitourinary: Denies: Dysuria, Hematuria, Frequency Musculoskeletal: Denies: Back pain, Extremity Pain Skin: Denies: Rash, Wounds Neurological: Denies: Headache, Weakness, Numbness Physical Exam Vital Signs/Narrative: Vital Signs Temp Pulse Resp BP Pulse Ox 05/19/20 04:27 98.2 F 92 16 122/87 H 98 Inital Vital Signs reviewed: Yes General: Well nourished, Well developed, No Acute Distress, - - Thin well-appearing female no acute distress Head: Normocephalic, Atraumatic Eyes: Perrl, EOMI. Negative for: Pale conjunctiva, Scleral icterus ENT: Moist mucous membranes, No rhinorrhea Neck: Supple, Nontender Cardiovascular: Regular rate, Regular rhythm, No murmurs Respiratory: No distress, CTA bilaterally, Chest nontender Abdomen: Soft, Nondistended, Normal bowel sounds, Tender - Minimal suprapubic and left suprapubic tenderness to palpation no guarding or rebound no palpable masses noted Back: Nontender, Normal Inspection Extremities: Nontender, No edema, - - Calves are supple no palpable cord, normal distal pulses. Skin: Normal color, No rash Neurological: Alert, Oriented x3, Cranial nerves II-XII grossly intact, Normal Strength, Normal Sensation Psychological: Normal affect, Normal Mood Diagnostic/Tx/Re-eval Laboratory Data 05/19/20 05/19/20 05/19/20 04:45 04:45 04:45 WBC 7.0 RBC 4.33 Hgb 13.1 Hct 38.1 MCV 88.0 MCH 30.3 MCHC 34.4 RDW Std Deviation 39.7 RDW Coeff of Brandee 12.4 Plt Count 293 MPV 11.6 Immature Gran % (Auto) 0.100 Neut % (Auto) 41.0 L Lymph % (Auto) 42.9 H Angel[place] % (Auto) 11.0 H Eos % (Auto) 4.0 Baso % (Auto) 1.0 Absolute Neuts (auto) 2.9 Absolute Lymphs (auto) 3.01 Nucleated RBC % 0 Sodium 141 Potassium 3.6 Chloride 107 Carbon Dioxide 28.0 Anion Gap 6 BUN 9 Creatinine 0.57 Estim Creat Clear Calc 119.27 Est GFR (MDRD) Af Amer 171 Est GFR (MDRD) Non-Af 141 BUN/Creatinine Ratio 15.9 Glucose 89 Lactic Acid Calcium 8.3 L Troponin I < 0.015 Serum , Qual NEGATIVE Urine Color Urine Clarity Urine pH Ur Specific [place] Urine Protein Urine Glucose (UA) Urine Ketones Urine Occult Blood Urine Nitrite Urine Bilirubin Urine Urobilinogen Ur Leukocyte Esterase Urine RBC Urine WBC Ur Squamous Epith Cells Urine Bacteria Urine Mucus 05/19/20 05/19/20 04:55 05:20 WBC RBC Hgb Hct MCV MCH MCHC RDW Std Deviation RDW Coeff of Brandee Plt Count MPV Immature Gran % (Auto) Neut % (Auto) Lymph % (Auto) [place] % (Auto) Eos % (Auto) Baso % (Auto) Absolute Neuts (auto) Absolute Lymphs (auto) Nucleated RBC % Sodium Potassium Chloride Carbon Dioxide Anion Gap BUN Creatinine Estim Creat Clear Calc Est GFR (MDRD) Af Amer Est GFR (MDRD) Non-Af BUN/Creatinine Ratio Glucose Lactic Acid 0.9 Calcium Troponin I Serum , Qual Urine Color Red Urine Clarity Cloudy Urine pH 6.5 Ur Specific [place] 1.025 Urine Protein 100 H Urine Glucose (UA) Normal Urine Ketones 5 H Urine Occult Blood 250 H Urine Nitrite Negative Urine Bilirubin Negative Urine Urobilinogen Normal Ur Leukocyte Esterase 25 H Urine RBC 50-100 SEEN Urine WBC 0-5 SEEN Ur Squamous Epith Cells 0 SEEN Urine Bacteria 0 SEEN Urine Mucus 0 SEEN - EKG Initial EKG Interpretation: - - Sinus rhythm at 73, incomplete right bundle branch block morphology is noted. Nonspecific T wave changes are noted diffusely, and are unchanged from a prior EKG. - Medical Decision Making Patient presented secondary to what sounds like a syncopal episode. EKG was obtained was found to be within normal limits and unchanged from the patient's prior EKG. Patient reports that she has been having a heavy menses over the course of the last 10 days, her hemoglobin is stable at 13.1. Electrolytes were not significantly abnormal, normal renal function, patient's lactic acid was negative making the likelihood of a seizure-like episode unlikely. Patient's troponin was found to be negative was negative urinalysis demonstrates blood consistent with the patient currently menstruating. Patient remained stable in the emergency department. Patient is negative per the [place] syncope rule, I do not believe that she requires admission or further observation she was given reassurance, patient was discharged in improved condition. ED Disposition - Plan for ED Patient: Disposition: Home or Assisted Living Diagnosis: Vasovagal syncope Instructions: ED Fainting, Vagal Reaction Referrals: Stevie Dixon NP, [employer]INEER-[facility] [Primary Care Provider] - 5-7 Days
[2020-05-19 04:52] LABS: Absolute Lymphocyte Count 3.01 X10^3/uL (0.83-4.51); Absolute Neutrophil Count 2.9 X10^3/uL (2.0-7.7); Basophil# 0.07 X10^3/uL; Eosinophil# 0.28 X10^3/uL; Hematocrit 38.1 % (37-47); Hemoglobin 13.1 g/dL (12.0-15.0); Lymphocyte # 3.01 X10^3/ul (4.0); Lymphocyte % 42.9 % (19-41); Mean Corp Hgb Conc 34.4 g/dL (32-36); Mean Corpuscular Hgb 30.3 pg (27.0-32.0); Mean Platelet Vol. 11.6 fl (6.2-12.0); Monocyte# 0.77 X10^3/uL; NRBC Flagged by Analyzer 0 % (0-5); Neutrophil # 2.87 X10^3/uL (2.7-7.7); Platelet Count 293 K/mm3 (150-450); RBC Distribution Width CV 12.4 % (11.6-14.6); RBC Distribution Width SD 39.7 fl (35.1-43.9); Red Blood Count 4.33 M/mm3 (4.2-5.4)
[2020-05-19 05:01] LABS: Internal QC Validated? YES +Cl - CLEAR BKGD; Pregnancy, Serum, hCG Quali. NEGATIVE Negative
[2020-05-19 05:09] LABS: Anion Gap 6 (5-15); BUN 9 mg/dL (7-18); BUN/Creat Ratio 15.9 RATIO (10-20); Calcium,Total 8.3 mg/dL (8.5-10.1); Chloride 107 mmol/L (98-107); Creatinine, Serum 0.57 mg/dL (0.55-1.02); EST Glomerular Filtration Rate 141 mL/min (>60); Est Glom Filt Rate - Afr Amer 171 mL/min (>60); Estimated Creatinine Clearance 119.27 ml/min; Glucose 89 mg/dL (74-106); Potassium 3.6 mmol/L (3.5-5.1); Sodium Level 141 mmol/L (136-145)
[2020-05-19] MEDS: 0.9% Normal Saline 1,000 ML 1000 ML IV (05:18)
[2020-05-19 05:19] VITALS: BP 110/79; PULSE 74; RESP 21; O2SAT 98
[2020-05-19 05:22] LABS: Lactic Acid 0.9 mmol/L (0.4-1.9)
[2020-05-19 05:29] LABS: Bacteria 0 SEEN /hpf (None Seen); Mucous, Urine 0 SEEN /hpf (<or=2+); Squamous Epithelial Cells - UA 0 SEEN /hpf (5-10)
[2020-05-19 05:30] LABS: Color, Urine Red (Yellow); Glucose, Dipstick Normal (Normal); Ketone-Dipstick 5 mg/dl (Negative); Leukocyte Esterase-Dipstick 25 /ul (Negative); Nitrite-Dipstick Negative (Negative); Occult Blood-Urine 250 /ul (Negative); Protein-Dipstick 100 mg/dl (Negative); Specific Gravity, Urine 1.025 (1.002-1.030); Urine Bilirubin Dipstick Negative (Negative); Urine Clarity Cloudy (Clear); Urine Urobilinogen Normal (Normal); Urine pH 6.5 (5.0 - 8.0)
[2020-05-19 05:36] LABS: Red Blood Cells-Urine 50-100 SEEN /hpf (0-5); White Blood Cells 0-5 SEEN /hpf (0-5)
[2020-05-19 05:57] VITALS: BP 109/85; PULSE 81; RESP 16; O2SAT 97
== END 2020-05-19 06:02 | disposition home or self-care (01) ==
PROVIDERS: Emergency Provider Emergency Medicine; PCP Nurse Practitioner Family
DX: R55 Syncope and collapse (principal); G40.909 Epilepsy, unspecified, not intractable, without status epilepticus; Z79.899 Other long term (current) drug therapy; F17.200 Nicotine dependence, unspecified, uncomplicated
CPT/HCPCS: 80048; 81001; 83605; 84484; 84703; 85025; 93005; 96360; 99285; J7030

== ENCOUNTER 2020-06-03 04:18 | Emergency (ER) | payer MEDICAID, SELFPAY ==
[2020-06-03 04:19] VITALS: BP 120/82; PULSE 89; RESP 16; TEMP 36.7; O2SAT 97; BMI 35.9
--- NOTE | 2020-06-03 04:38 | RAD_ITS ---
STUDY: X-RAY CHEST REASON FOR EXAM: Female, 24 years old. Cough TECHNIQUE: Single AP portable view of the chest. COMPARISON: January 30, 2020 chest x-ray FINDINGS: The lungs are clear and expanded. Nonspecific hyperinflation of the lungs. There is no demonstrated pleural abnormality. Normal size heart. Normal mediastinum and harry. Normal visualized pulmonary arteries. Normal visualized aortic arch and descending thoracic aorta. Normal visualized thoracic spine. Normal visualized ribs, clavicles, and shoulders. There is no demonstrated abnormality of the visualized soft tissue structures of the upper abdomen. RAD/Chest 1 View (Portable) IMPRESSION: Normal x-ray examination of the chest. Electronically Signed: Shira March MD at 5:12 EDT Tel , Service support ,
--- NOTE | 2020-06-03 04:53 | ED.DCSUM_ITS ---
History of Present Illness Chief Complaint: Seizure Informant: Patient Narrative: Patient is a 24-year-old female with history of [place] seizures, on topiramate, presenting with seizures and generalized malaise. Patient states she had a seizure when she was walking back from the bathroom last night. She states it lasted for about 5 minutes. She was confused during and afterwards. Patient feels like it was a normal seizure. She states she did hit her head right before hand on the door frame. She is complaining of a mild headache. She notes over the past few days she has been feeling unwell. She had a televisit which diagnosed her with some type of upper respiratory infection. Patient was placed on doxycycline. She has finished the antibiotics. She notes that she has been having painful swelling of her neck bilaterally. She denies any cough, shortness of breath or difficulty breathing. She denies any GI or symptoms. Past Medical History - Allergies and Home Meds Allergies/Adverse Reactions: Allergies risperidone [From Risperdal] Allergy (Verified 05/11/20 17:43) Swelling Sulfa (Sulfonamide Antibiotics) Allergy (Verified 05/11/20 17:43) Anaphylaxis Primary Care Physician: Stevie Dixon [employer]RIC STATION CHIEF, [employer]IC STATION CHIEF-C [Primary Care Provider] - Past Medical History: - - Seizure disorder Surgical History: no surgical history Lives: Spouse/ Significant Other Smoking Status: Current every day smoker Review of Systems General: Reports: Chills, Malaise. Denies: Fever, Sweats Eyes: Denies: Visual changes - bilaterally, Diplopia ENT: Denies: Rhinorrhea, Sore throat Cardiovascular: Denies: Chest pain, Palpitations Respiratory: Denies: Dyspnea, Cough, Dyspnea on exertion Gastrointestinal: Denies: Abdominal pain, Nausea, Vomiting, Diarrhea, Melena, Hematochezia Genitourinary: Denies: Dysuria, Hematuria, Frequency Musculoskeletal: Reports: Neck pain. Denies: Back pain, Extremity Pain Skin: Denies: Rash, Wounds Neurological: Reports: Headache, - - Seizure. Denies: Weakness, Numbness Physical Exam Vital Signs/Narrative: Vital Signs Temp Pulse Resp BP Pulse Ox 06/03/20 04:19 98.1 F 89 16 120/82 H 97 Inital Vital Signs reviewed: Yes General: Well nourished, Well developed, No Acute Distress Head: Normocephalic, Atraumatic, - Eyes: Perrl, EOMI ENT: Moist mucous membranes, No rhinorrhea, TM's clear Neck: Supple, No lymphadenopathy - Bilateral posterior chain lymphadenopathy, No JVD, - - No nuchal rigidity Cardiovascular: Regular rate, Regular rhythm, No murmurs Respiratory: No distress, CTA bilaterally, Chest nontender Abdomen: Soft, Nontender, Nondistended, Normal bowel sounds Back: Nontender, Normal Inspection Extremities: Nontender, No edema Skin: Normal color, No rash Neurological: Alert, Oriented x3, Cranial nerves II-XII grossly intact, Normal Strength, Normal Sensation, Normal Gait. Negative for: Weakness Psychological: Normal affect, Normal Mood Diagnostic/Tx/Re-eval Clinical Impression(s) from Imaging Studies Chest X-Ray 06/03/20 04:38 IMPRESSION: Normal x-ray examination of the chest. Electronically Signed: Shira March MD at 5:12 EDT Tel , Service support , Laboratory Data 06/03/20 06/03/20 06/03/20 04:50 04:50 04:50 WBC 6.4 RBC 4.27 Hgb 12.5 Hct 37.7 MCV 88.3 MCH 29.3 MCHC 33.2 RDW Std Deviation 37.7 RDW Coeff of Brandee 11.9 Plt Count 279 MPV 11.5 Immature Gran % (Auto) 0.200 Neut % (Auto) 56.6 Lymph % (Auto) 29.9 [place] % (Auto) 10.0 Eos % (Auto) 2.5 Baso % (Auto) 0.8 Absolute Neuts (auto) 3.6 Absolute Lymphs (auto) 1.92 Nucleated RBC % 0 Sodium 138 Potassium 3.5 Chloride 105 Carbon Dioxide 28.0 Anion Gap 5 BUN 14 Creatinine 0.48 L Estim Creat Clear Calc 165.43 Est GFR (MDRD) Af Amer 204 Est GFR (MDRD) Non-Af 169 BUN/Creatinine Ratio 28.9 H Glucose 83 Calcium 8.3 L Total Bilirubin 0.50 AST 9 L ALT 12 L Alkaline Phosphatase 79 Total Protein 6.5 Albumin 3.8 Globulin 2.7 Albumin/Globulin Ratio 1.4 Urine Color Urine Clarity Urine pH Ur Specific [place] Urine Protein Urine Glucose (UA) Urine Ketones Urine Occult Blood Urine Nitrite Urine Bilirubin Urine Urobilinogen Ur Leukocyte Esterase Urine RBC Urine WBC Ur Squamous Epith Cells Urine Bacteria Urine Mucus Urine Test Monoscreen Negative 06/03/20 05:15 WBC RBC Hgb Hct MCV MCH MCHC RDW Std Deviation RDW Coeff of Brandee Plt Count MPV Immature Gran % (Auto) Neut % (Auto) Lymph % (Auto) [place] % (Auto) Eos % (Auto) Baso % (Auto) Absolute Neuts (auto) Absolute Lymphs (auto) Nucleated RBC % Sodium Potassium Chloride Carbon Dioxide Anion Gap BUN Creatinine Estim Creat Clear Calc Est GFR (MDRD) Af Amer Est GFR (MDRD) Non-Af BUN/Creatinine Ratio Glucose Calcium Total Bilirubin AST ALT Alkaline Phosphatase Total Protein Albumin Globulin Albumin/Globulin Ratio Urine Color Yellow Urine Clarity Clear Urine pH 5.0 Ur Specific [place] 1.030 Urine Protein 30 H Urine Glucose (UA) Normal Urine Ketones 150 H Urine Occult Blood Negative Urine Nitrite Negative Urine Bilirubin Negative Urine Urobilinogen Normal Ur Leukocyte Esterase 25 H Urine RBC 0 SEEN Urine WBC 0-5 SEEN Ur Squamous Epith Cells 0-5 SEEN Urine Bacteria 0 SEEN Urine Mucus 0 SEEN Urine Test Negative Monoscreen - Medical Decision Making Patient evaluated for general feeling of malaise as well as breakthrough seizure. Patient did hit her head tonight. She does not have any signs of head trauma. No signs of basilar skull fracture. Normal neurologic exam. She does have a history of seizures and I do not think a head CT is indicated at this time. She is not on any anticoagulation. Symptoms sound more viral in nature. She does have some tender adenopathy of the neck bilaterally.Work-up including CBC and CMP are largely unremarkable. Urinalysis is not consistent with infection but does show 150 ketones. Patient is given a liter of fluids. I suspect she is dehydrated and that is exacerbating her symptoms. Monospot is negative. Covid rapid test is negative. Chest x-rays not show any acute process. Patient be discharged home with symptomatic treatment clean Tylenol and ibuprofen. She is discharged to follow-up with her primary care doctor as well as her neurologist. Patient is counseled on signs and symptoms requiring return to the emergency room. Patient verbalizes agreement and understand this plan. Patient discharged home in stable and improved condition. ED Disposition - Plan for ED Patient: Disposition: Home or Assisted Living Diagnosis: Dehydration, Breakthrough seizure Instructions: ED Dehydration (Adult), ED Seizure, Recurrent (Adult) Referrals: Stevie Dixon NP, [employer] STATION CHIEF-C [Primary Care Provider] -
[2020-06-03 04:55] LABS: Absolute Lymphocyte Count 1.92 X10^3/uL (0.83-4.51); Absolute Neutrophil Count 3.6 X10^3/uL (2.0-7.7); Basophil# 0.05 X10^3/uL; Basophil% 0.8 % (0-1); Eosinophil# 0.16 X10^3/uL; Eosinophils% 2.5 % (0-5); Hematocrit 37.7 % (37-47); Hemoglobin 12.5 g/dL (12.0-15.0); Lymphocyte # 1.92 X10^3/ul (0.83-4.51); Lymphocyte % 29.9 % (19-41); Mean Corp Hgb Conc 33.2 g/dL (32-36); Mean Corpuscular Hgb 29.3 pg (27.0-32.0); Mean Corpuscular Volume 88.3 fL (81-99); Mean Platelet Vol. 11.5 fl (6.2-12.0); Monocyte# 0.64 X10^3/uL; NRBC Flagged by Analyzer 0 % (0-5); Neutrophil # 3.64 X10^3/uL (2.7-7.7); Neutrophil % 56.6 % (47-70); Platelet Count 279 K/mm3 (150-450); RBC Distribution Width CV 11.9 % (11.6-14.6); RBC Distribution Width SD 37.7 fl (35.1-43.9); Red Blood Count 4.27 M/mm3 (4.2-5.4); White Blood Count 6.4 K/mm3 (4.4-11.0)
[2020-06-03 05:07] LABS: Internal QC Validated? YES +Cl - CLEAR BKGD; Monotest Negative (Negative)
[2020-06-03 05:26] LABS: Bacteria 0 SEEN /hpf (None Seen); Color, Urine Yellow (Yellow); Glucose, Dipstick Normal (Normal); Leukocyte Esterase-Dipstick 25 /ul (Negative); Mucous, Urine 0 SEEN /hpf (<or=2+); Nitrite-Dipstick Negative (Negative); Occult Blood-Urine Negative /ul (Negative); Protein-Dipstick 30 mg/dl (Negative); Red Blood Cells-Urine 0 SEEN /hpf (0-5); Urine Bilirubin Dipstick Negative (Negative); Urine Clarity Clear (Clear); Urine Urobilinogen Normal (Normal)
[2020-06-03 05:29] LABS: Ketone-Dipstick 150 mg/dl (Negative)
[2020-06-03 05:38] LABS: Internal QC Validated? YES +Cl - CLEAR BKGD; Pregnancy, Urine Negative Negative; Squamous Epithelial Cells - UA 0-5 SEEN /hpf (5-10); White Blood Cells 0-5 SEEN /hpf (0-5)
[2020-06-03 05:40] LABS: ALB/GLOB Ratio 1.4 RATIO (0.9-2.4); AST(SGOT) 9 U/L (15-37); Alanine Aminotransfer ALT/SGPT 12 U/L (13-56); Albumin, Serum 3.8 g/dL (3.2-5.0); Alkaline Phosphatase 79 U/L (45-117); Anion Gap 5 (5-15); BUN 14 mg/dL (7-18); BUN/Creat Ratio 28.9 RATIO (10-20); Calcium,Total 8.3 mg/dL (8.5-10.1); Chloride 105 mmol/L (98-107); Creatinine, Serum 0.48 mg/dL (0.55-1.02); EST Glomerular Filtration Rate 169 mL/min (>60); Est Glom Filt Rate - Afr Amer 204 mL/min (>60); Estimated Creatinine Clearance 165.43 ml/min; Globulin 2.7 g/dL (2.2-4.2); Glucose 83 mg/dL (74-106); Potassium 3.5 mmol/L (3.5-5.1); Protein, Total 6.5 g/dL (6.4-8.2); Sodium Level 138 mmol/L (136-145)
[2020-06-03 06:46] VITALS: BP 108/76; PULSE 77; RESP 19; O2SAT 100
== END 2020-06-03 06:47 | disposition home or self-care (01) ==
PROVIDERS: Emergency Provider Emergency Medicine; PCP Nurse Practitioner Family
DX: G40.A09 Absence epileptic syndrome, not intractable, without status epilepticus (principal); E86.0 Dehydration; F17.200 Nicotine dependence, unspecified, uncomplicated; Z79.899 Other long term (current) drug therapy
CPT/HCPCS: 71045; 80053; 81001; 81025; 85025; 86308; 87426; 96360; 96361; 99285; J7040; A4216

== ENCOUNTER 2020-06-21 00:29 | Emergency (ER) | payer MEDICAID, SELFPAY ==
[2020-06-21 00:30] VITALS: BP 122/88; PULSE 76; RESP 15; TEMP 36.6; O2SAT 100; BMI 16.4
--- NOTE | 2020-06-21 01:01 | CT_ITS ---
STUDY: CT ABDOMEN AND PELVIS WITH CONTRAST REASON FOR EXAM: Female, 24 years old. Abdominal pain RADIATION DOSAGE (If Supplied By Facility): CTDIvol = ( 9.97 ) mGy, DLP = ( 234.48 ) mGycm TECHNIQUE: Transaxial images were obtained from the dome of the diaphragm to the symphysis pubis without oral contrast. IV 100mL Isovue-370 was administered. Sagittal and coronal images were reconstructed. Individualized dose optimization techniques were used for this CT. COMPARISON: None. FINDINGS: The visualized lung bases are unremarkable. The visualized portions of the heart are within normal limits. Normal liver. Gallbladder is contracted. No biliary duct dilatation. Normal spleen. Normal pancreas. Normal bilateral adrenal glands. Normal right kidney. Normal left kidney. Normal visualized stomach. Normal small intestine. Normal colon. The appendix is not definitively visualized, but there is no pericecal inflammation. Normal abdominal aorta. Normal inferior vena cava. Shotty ileocolic lymph nodes are noted.. Normal urinary bladder. Normal reproductive structures. Trace free fluid in the pelvic cul-de-sac, likely physiologic in nature. Normal abdominal wall. Normal osseous structures. CT/Abdomen/Pelvis W IV Cont ONLY IMPRESSION: Shotty and ileocolic lymph nodes, potentially representing a mild mesenteric adenitis Electronically Signed: Jared Phillips MD at 2:16 EDT Tel , Service support ,
--- NOTE | 2020-06-21 01:02 | EDS_ITS ---
HPI History of Present Illness Chief Complaint: Abd Pain Narrative Narrative: Patient is a 24-year-old female who presents with abdominal/pelvic pain. She did have a colonoscopy 1 week ago but had been doing okay until yesterday. Her menstrual period began yesterday. She complains of left lower abdominal/pelvic cramping pain. This is both cramping and sharp. She has tried some anti-inflammatories at home with little relief. She reports urinary urgency but no dysuria or gross hematuria. She reports nausea without vomiting. No fevers. [facility] Medical History (Updated 06/21/20 @ 02:[address] Hugh Guajardo MD) Seizure Home Medications topiramate 100 mg PO DAILY 01/30/20 [History Last Taken Unknown] folic acid 0.8 mg PO DAILY 05/19/20 [History Last Taken Unknown] Allergy/AdvReac Type Severity Reaction Status Date / Time risperidone [From Risperdal] Allergy Swelling Verified 06/21/20 00:34 Sulfa (Sulfonamide Allergy Anaphylaxis Verified 06/21/20 00:34 Antibiotics) Social History Smoking Status: Current every day smoker ROS ROS ED Constitutional Constitutional ED: Denies fever(s) Cardiovascular Cardiovascular: Denies chest pain Respiratory/Chest Respiratory/Chest: Denies dyspnea Gastrointestinal Gastrointestinal: Reports abdominal pain and nausea; Denies diarrhea or vomiting Genitourinary Genitourinary ED: Denies dysuria Musculoskeletal Musculoskeletal: Denies arthralgias or myalgias Integumentary Denies rash Neurologic Neurologic: Denies headache(s) EXAM Physical Exam Const Vital Signs: 06/21/20 00:30 Temperature 97.9 F Temperature Source Temporal Pulse Rate 76 Respiratory Rate 15 Blood Pressure 122/88 H Blood Pressure Mean 99 Pulse Ox 100 Positive well nourished HEENT Reports moist mucous membranes Eyes EOMs intact bilaterally Chest Wall inspection of chest normal Resp normal respiratory effort Cardio regular rate and regular rhythm GI GI Narrative: Abdomen is soft with left lower quadrant abdominal tenderness without guarding without rebound she is nondistended Neuro Sensorium / Orientation: alert Psych mental status grossly normal Skin no rashes or lesions noted MDM MDM MDM Narrative Medical decision making narrative: CBC normal, chemistry normal, urinalysis shows blood, patient is currently on her menstrual period. negative, CT the abdomen and pelvis shows findings consistent with possible mild mesenteric adenitis. Patient was advised on supportive care. The patient was discharged. She does understand return for new or worsening symptoms. Lab Data Labs: Laboratory Results - last 24 hr 06/21/20 06/21/20 06/21/20 01:16 01:16 01:28 WBC 7.7 RBC 4.23 Hgb 12.6 Hct 37.1 MCV 87.7 MCH 29.8 MCHC 34.0 RDW Std Deviation 37.9 RDW Coeff of Brandee 11.7 Plt Count 315 MPV 11.7 Immature Gran % (Auto) 0.400 Neut % (Auto) 47.8 Lymph % (Auto) 38.1 [place] % (Auto) 9.4 Eos % (Auto) 3.5 Baso % (Auto) 0.8 Absolute Neuts (auto) 3.7 Absolute Lymphs (auto) 2.93 Nucleated RBC % 0 Sodium 140 Potassium 3.5 Chloride 108 H Carbon Dioxide 28.0 Anion Gap 4 L BUN 10 Creatinine 0.74 Estim Creat Clear Calc 84.15 Est GFR (MDRD) Af Amer 125 Est GFR (MDRD) Non-Af 103 BUN/Creatinine Ratio 13.5 Glucose 81 Calcium 8.3 L Urine Color Yellow Urine Clarity Clear Urine pH 6.0 Ur Specific [place] 1.020 Urine Protein Negative Urine Glucose (UA) Normal Urine Ketones Negative Urine Occult Blood 250 H Urine Nitrite Negative Urine Bilirubin Negative Urine Urobilinogen Normal Ur Leukocyte Esterase Negative Urine RBC 10-25 SEEN Urine WBC 0 SEEN Ur Squamous Epith Cells 0-5 SEEN Urine Bacteria 0 SEEN Urine Mucus 0 SEEN Urine Test 06/21/20 01:28 WBC RBC Hgb Hct MCV MCH MCHC RDW Std Deviation RDW Coeff of Brandee Plt Count MPV Immature Gran % (Auto) Neut % (Auto) Lymph % (Auto) [place] % (Auto) Eos % (Auto) Baso % (Auto) Absolute Neuts (auto) Absolute Lymphs (auto) Nucleated RBC % Sodium Potassium Chloride Carbon Dioxide Anion Gap BUN Creatinine Estim Creat Clear Calc Est GFR (MDRD) Af Amer Est GFR (MDRD) Non-Af BUN/Creatinine Ratio Glucose Calcium Urine Color Urine Clarity Urine pH Ur Specific [place] Urine Protein Urine Glucose (UA) Urine Ketones Urine Occult Blood Urine Nitrite Urine Bilirubin Urine Urobilinogen Ur Leukocyte Esterase Urine RBC Urine WBC Ur Squamous Epith Cells Urine Bacteria Urine Mucus Urine Test Negative Radiography Diagnostic Testing: Radiology Impression Abdomen/Pelvis CT 06/21/20 01:01 IMPRESSION: Shotty and ileocolic lymph nodes, potentially representing a mild mesenteric adenitis Electronically Signed: Jared Phillips MD at 2:16 EDT Tel , Service support , Discharge Plan Triage Chief Complaint: Abd Pain ED Provider: Hugh Guajardo Dx/Rx/DC Orders Clinical Impression: Acute mesenteric adenitis Instructions: ED Adenitis, Mesenteric Prescriptions: No Action topiramate 50 MG tablet 100 mg PO DAILY RF: 0 folic acid 0.8 MG tablet 0.8 mg PO DAILY RF: 0 Primary Care Provider: Stevie Dixon NP Referrals: Stevie Dixon NP, [employer]STATE CONSERVATOR-C [Primary Care Provider] - Disposition Disposition: Home, self care
[2020-06-21 01:22] LABS: Absolute Lymphocyte Count 2.93 X10^3/uL (0.83-4.51); Absolute Neutrophil Count 3.7 X10^3/uL (2.0-7.7); Basophil# 0.06 X10^3/uL; Basophil% 0.8 % (0-1); Eosinophil# 0.27 X10^3/uL; Eosinophils% 3.5 % (0-5); Hematocrit 37.1 % (37-47); Hemoglobin 12.6 g/dL (12.0-15.0); Lymphocyte # 2.93 X10^3/ul (0.83-4.51); Lymphocyte % 38.1 % (19-41); Mean Corpuscular Hgb 29.8 pg (27.0-32.0); Mean Corpuscular Volume 87.7 fL (81-99); Mean Platelet Vol. 11.7 fl (6.2-12.0); Monocyte# 0.72 X10^3/uL; Monocyte% 9.4 % (0-10); NRBC Flagged by Analyzer 0 % (0-5); Neutrophil # 3.69 X10^3/uL (2.7-7.7); Neutrophil % 47.8 % (47-70); Platelet Count 315 K/mm3 (150-450); RBC Distribution Width CV 11.7 % (11.6-14.6); RBC Distribution Width SD 37.9 fl (35.1-43.9); Red Blood Count 4.23 M/mm3 (4.2-5.4); White Blood Count 7.7 K/mm3 (4.4-11.0)
[2020-06-21] MEDS: Ketorolac 30 MG/ML Syringe IV (01:23)
[2020-06-21 01:34] LABS: Bacteria 0 SEEN /hpf (None Seen); Color, Urine Yellow (Yellow); Glucose, Dipstick Normal (Normal); Internal QC Validated? YES +Cl - CLEAR BKGD; Ketone-Dipstick Negative (Negative); Leukocyte Esterase-Dipstick Negative /ul (Negative); Mucous, Urine 0 SEEN /hpf (<or=2+); Nitrite-Dipstick Negative (Negative); Occult Blood-Urine 250 /ul (Negative); Pregnancy, Urine Negative Negative; Protein-Dipstick Negative (Negative); Urine Bilirubin Dipstick Negative (Negative); Urine Clarity Clear (Clear); Urine Urobilinogen Normal (Normal); White Blood Cells 0 SEEN /hpf (0-5)
[2020-06-21 01:38] LABS: Anion Gap 4 (5-15); BUN 10 mg/dL (7-18); BUN/Creat Ratio 13.5 RATIO (10-20); Calcium,Total 8.3 mg/dL (8.5-10.1); Chloride 108 mmol/L (98-107); Creatinine, Serum 0.74 mg/dL (0.55-1.02); EST Glomerular Filtration Rate 103 mL/min (>60); Est Glom Filt Rate - Afr Amer 125 mL/min (>60); Estimated Creatinine Clearance 84.15 ml/min; Glucose 81 mg/dL (74-106); Potassium 3.5 mmol/L (3.5-5.1); Sodium Level 140 mmol/L (136-145)
[2020-06-21 01:40] LABS: Red Blood Cells-Urine 10-25 SEEN /hpf (0-5); Squamous Epithelial Cells - UA 0-5 SEEN /hpf (5-10)
== END 2020-06-21 02:24 | disposition home or self-care (01) ==
PROVIDERS: Emergency Provider Emergency Medicine; PCP Nurse Practitioner Family
DX: I88.0 Nonspecific mesenteric lymphadenitis (principal); R56.9 Unspecified convulsions; F17.200 Nicotine dependence, unspecified, uncomplicated; Z79.899 Other long term (current) drug therapy
CPT/HCPCS: 74177; 80048; 81001; 81025; 85025; 96374; 99283; Q9967; A4216

== ENCOUNTER 2020-06-21 15:29 | Emergency (ER) | payer MEDICAID, SELFPAY ==
[2020-06-21 00:30] VITALS: BMI 16.4
[2020-06-21 15:30] VITALS: BP 117/81; PULSE 96; RESP 15; TEMP 36.9; O2SAT 99; BMI 16.1
--- NOTE | 2020-06-21 15:58 | EX.ED.DYSGE1 ---
HPI History of Present Illness Chief Complaint: Abd Pain Informant: patient Onset/Context/Timing Onset: Days Context: Gradual Onset Timing: Waxes and wanes Current Severity: Moderate Maximum Severity: Moderate Narrative Narrative: Patient presents with abdominal pain. She had a recent colonoscopy performed and was doing well until yesterday when she had increased pain. Patient was seen in the ER late last night/early this morning for the same symptoms. She had blood work, urinalysis, CT scan abdomen and pelvis which revealed evidence of mesenteric adenitis. Patient states that her pain is not well controlled. She did take some Tylenol earlier today. She states she feels very nauseous and has difficulty eating. [facility] Medical History Seizure Home Medications topiramate 100 mg PO DAILY 01/30/20 [History Last Taken Unknown] folic acid 0.8 mg PO DAILY 05/19/20 [History Last Taken Unknown] naproxen [Naprosyn] 500 mg PO BID PRN #20 tab 06/21/20 [Rx Last Taken Unknown] omeprazole 20 mg PO DAILY #30 cap 06/21/20 [Rx Last Taken Unknown] ondansetron 4 mg PO Q8H PRN #10 tab 06/21/20 [Rx Last Taken Unknown] prednisone 40 mg PO DAILY 3 Days #6 tab 06/21/20 [Rx Last Taken Unknown] Allergy/AdvReac Type Severity Reaction Status Date / Time risperidone [From Risperdal] Allergy Swelling Verified 06/21/20 15:30 Sulfa (Sulfonamide Allergy Anaphylaxis Verified 06/21/20 15:30 Antibiotics) Social History Smoking Status: Current every day smoker ROS ROS ED Constitutional Constitutional ED: Reports fever(s) and other Details: Temperature 100.4 this morning ; Denies chills Eyes Eyes: Denies change in vision ENT ENT ED: Denies sore throat Cardiovascular Cardiovascular: Denies chest pain Respiratory/Chest Respiratory/Chest: Denies cough or dyspnea Gastrointestinal Gastrointestinal: Reports abdominal pain and nausea; Denies diarrhea or vomiting Genitourinary Genitourinary ED: Denies dysuria Musculoskeletal Musculoskeletal: Denies back pain Integumentary Denies rash Neurologic Neurologic: Denies headache(s) or weakness Psychiatric Psychiatric: Denies anxiety or depression Endocrine Endocrinology: Denies polydipsia or polyuria Allergic/Immunologic Allergic/Immunologic ED: Denies urticaria EXAM Physical Exam Const Vital Signs: 06/21/20 15:30 Temperature 98.4 F Temperature Source Temporal Pulse Rate 96 Respiratory Rate 15 Blood Pressure 117/81 H Blood Pressure Mean 93 Pulse Ox 99 Oxygen Delivery Method Room Air Positive well nourished and well developed General Appearance ED: well developed HEENT Reports normocephalic and head/scalp atraumatic Eyes PERRL and EOMs intact bilaterally Neck supple Chest Wall inspection of chest normal and palpation of chest normal Resp normal respiratory effort and clear to auscultation bilaterally Cardio regular rate and regular rhythm GI Auscultation: hypoactive bowel sounds Palpation: soft and tender other (Mild diffuse abdominal tenderness. No guarding or rebound.) Extremity normal to inspection Neuro oriented x3 and no sensory deficits noted Sensorium / Orientation: alert Motor Exam: strength 5/5 throughout Psych mental status grossly normal Skin no rashes or lesions noted MDM [facility] Treatment and Re-Evaluation Comments:: I did review the patient's work-up from earlier this morning. I do not feel additional testing needs be performed. I discussed with the patient taking anti-inflammatories and even a small burst of steroids to help control inflammation. She will be given antiemetics as well as antacids. Discharge Plan Triage Chief Complaint: Abd Pain ED Provider: Princess Haro Dx/Rx/DC Orders Clinical Impression: Acute mesenteric adenitis Instructions: ED Adenitis, Mesenteric Prescriptions: New prednisone 20 MG tablet 40 mg PO DAILY 3 Days Qty: 6 RF: 0 omeprazole [omeprazole] 20 MG capsule 20 mg PO DAILY Qty: 30 RF: 0 ondansetron 4 mg tablet,disintegrating 4 mg PO Q8H PRN (Reason: nausea and vomiting) Qty: 10 RF: 0 naproxen [Naprosyn] 500 mg tablet 500 mg PO BID PRN (Reason: pain) Qty: 20 RF: 0 No Action topiramate 50 MG tablet 100 mg PO DAILY RF: 0 folic acid 0.8 MG tablet 0.8 mg PO DAILY RF: 0 Primary Care Provider: Stevie Dixon NP Referrals: Stevie Dixon NP, EMERGENCY MEDICAL SERVICES COORDINATOR-C [Primary Care Provider] - 1 Week if not improving Disposition Disposition: Home, self care
[2020-06-21] MEDS: HYDROcodone Bitartrate/Apap 5/325 Tablet PO (16:06)
[2020-06-21] MEDS: Naproxen 500 MG Tablet PO (16:06)
[2020-06-21 16:16] VITALS: BP 115/85; PULSE 73; RESP 18; O2SAT 98
== END 2020-06-21 16:19 | disposition home or self-care (01) ==
LOC: ED 16:18
PROVIDERS: Emergency Provider Emergency Medicine; PCP Nurse Practitioner Family
DX: I88.0 Nonspecific mesenteric lymphadenitis (principal); R56.9 Unspecified convulsions; F17.200 Nicotine dependence, unspecified, uncomplicated; Z79.899 Other long term (current) drug therapy
CPT/HCPCS: 99283

== ENCOUNTER 2020-06-26 01:15 | Emergency (ER) | payer MEDICAID, SELFPAY ==
[2020-06-26 01:15] VITALS: BP 140/96; PULSE 75; RESP 18; TEMP 36.8; O2SAT 100; BMI 16.9
[2020-06-26 01:30] LABS: Bacteria 0 SEEN /hpf (None Seen); Glucose, Dipstick Normal (Normal); Ketone-Dipstick Negative (Negative); Leukocyte Esterase-Dipstick Negative /ul (Negative); Mucous, Urine 0 SEEN /hpf (<or=2+); Nitrite-Dipstick Negative (Negative); Occult Blood-Urine Negative /ul (Negative); Protein-Dipstick Negative (Negative); Red Blood Cells-Urine 0 SEEN /hpf (0-5); Urine Bilirubin Dipstick Negative (Negative); Urine Urobilinogen Normal (Normal); White Blood Cells 0 SEEN /hpf (0-5)
[2020-06-26 01:31] LABS: Color, Urine Yellow (Yellow); Urine Clarity Clear (Clear)
[2020-06-26 01:34] LABS: Absolute Lymphocyte Count 4.19 X10^3/uL (0.83-4.51); Basophil# 0.08 X10^3/uL; Basophil% 0.8 % (0-1); Eosinophil# 0.16 X10^3/uL; Eosinophils% 1.6 % (0-5); Hematocrit 41.1 % (37-47); Hemoglobin 13.4 g/dL (12.0-15.0); Lymphocyte # 4.19 X10^3/ul (0.83-4.51); Lymphocyte % 40.6 % (19-41); Mean Corp Hgb Conc 32.6 g/dL (32-36); Mean Corpuscular Hgb 29.1 pg (27.0-32.0); Mean Corpuscular Volume 89.3 fL (81-99); Mean Platelet Vol. 11.2 fl (6.2-12.0); Monocyte# 0.87 X10^3/uL; Monocyte% 8.4 % (0-10); NRBC Flagged by Analyzer 0 % (0-5); Neutrophil # 4.98 X10^3/uL (2.7-7.7); Neutrophil % 48.3 % (47-70); Platelet Count 415 K/mm3 (150-450); RBC Distribution Width CV 11.8 % (11.6-14.6); RBC Distribution Width SD 37.7 fl (35.1-43.9); White Blood Count 10.3 K/mm3 (4.4-11.0)
[2020-06-26 01:36] LABS: Internal QC Validated? YES +Cl - CLEAR BKGD; Pregnancy, Urine Negative Negative
[2020-06-26 01:37] LABS: Squamous Epithelial Cells - UA 0-5 SEEN /hpf (5-10)
[2020-06-26] MEDS: Ondansetron 4 MG/2 ML Vial IV (01:40)
[2020-06-26] MEDS: Ketorolac 15 MG/ML Vial IV (01:42)
[2020-06-26 01:51] LABS: ALB/GLOB Ratio 1.2 RATIO (0.9-2.4); AST(SGOT) 8 U/L (15-37); Alanine Aminotransfer ALT/SGPT 16 U/L (13-56); Albumin, Serum 3.8 g/dL (3.2-5.0); Alkaline Phosphatase 86 U/L (45-117); Anion Gap 4 (5-15); BUN 13 mg/dL (7-18); BUN/Creat Ratio 20.3 RATIO (10-20); Calcium,Total 8.2 mg/dL (8.5-10.1); Chloride 107 mmol/L (98-107); Creatinine, Serum 0.64 mg/dL (0.55-1.02); EST Glomerular Filtration Rate 123 mL/min (>60); Est Glom Filt Rate - Afr Amer 148 mL/min (>60); Estimated Creatinine Clearance 100.13 ml/min; Globulin 3.2 g/dL (2.2-4.2); Glucose 90 mg/dL (74-106); Lipase 115 U/L (73-393); Potassium 3.2 mmol/L (3.5-5.1); Sodium Level 141 mmol/L (136-145)
--- NOTE | 2020-06-26 02:12 | EX.ED.DYSGE1 ---
HPI History of Present Illness Chief Complaint: Abd Pain Informant: patient Onset/Context/Timing Onset: Today Location: Right lower quadrant Current Severity: Mild Maximum Severity: Severe Worsened by: nothing Relieved by: nothing Associated Symptoms Associated Symptoms: nausea Narrative Narrative: Patient had a colonoscopy at the end of May for possible Crohn's. She had biopsies and she said the results were negative. She was seen in the ED 5 days ago for right lower quadrant pain. She had a CT that showed mesenteric adenitis. No complications from the colonoscopy. She has been taking steroids and anti-inflammatories. She had been doing well and then had recurrence of her right lower quadrant pain this evening. No urinary symptoms. She had some nausea but no other GI symptoms. Prior similar symptoms: Yes PFSH PFSH Medical History Seizure Home Medications topiramate 100 mg PO DAILY 01/30/20 [History Last Taken Unknown] folic acid 0.8 mg PO DAILY 05/19/20 [History Last Taken Unknown] naproxen [Naprosyn] 500 mg PO BID PRN #20 tab 06/21/20 [Rx Last Taken Unknown] omeprazole 20 mg PO DAILY #30 cap 06/21/20 [Rx Last Taken Unknown] ondansetron 4 mg PO Q8H PRN #10 tab 06/21/20 [Rx Last Taken Unknown] prednisone 40 mg PO DAILY 3 Days #6 tab 06/21/20 [Rx Last Taken Unknown] Allergy/AdvReac Type Severity Reaction Status Date / Time risperidone [From Risperdal] Allergy Swelling Verified 06/26/20 01:19 Sulfa (Sulfonamide Allergy Anaphylaxis Verified 06/26/20 01:19 Antibiotics) Social History Smoking Status: Current every day smoker ROS ROS ED Constitutional Constitutional ED: Denies chills or fever(s) Eyes Eyes: Denies change in vision ENT ENT ED: Denies ear pain Cardiovascular Cardiovascular: Denies chest pain Respiratory/Chest Respiratory/Chest: Denies dyspnea Gastrointestinal Gastrointestinal: Reports abdominal pain and nausea; Denies constipation, diarrhea, melena or vomiting Genitourinary Genitourinary ED: Denies dysuria, hematuria or urinary frequency Musculoskeletal Musculoskeletal: Denies arthralgias or myalgias Integumentary Denies rash Neurologic Neurologic: Denies headache(s) Psychiatric Psychiatric: Denies depression Endocrine Endocrinology: Denies polyuria EXAM Physical Exam Const Vital Signs: 06/26/20 01:15 Temperature 98.2 F Temperature Source Oral Pulse Rate 75 Respiratory Rate 18 Blood Pressure 140/96 H Blood Pressure Mean 110 Pulse Ox 100 Oxygen Delivery Method Room Air Positive well nourished and well developed General Appearance ED: well developed HEENT Negative for trauma Eyes EOMs intact bilaterally Neck supple Resp normal respiratory effort Cardio regular rate GI normal to inspection, nondistended, normoactive bowel sounds Palpation: tender RLQ Extremity normal to inspection Neuro oriented x3 Sensorium / Orientation: alert Psych mental status grossly normal Skin no rashes or lesions noted MDM MDM MDM Narrative Medical decision making narrative: Patient has a history of mesenteric adenitis on CT 5 days ago. There were no complications from her colonoscopy. Her exam is reassuring. Vital signs and labs are all reassuring. No indication to repeat the CT today. Patient was advised she may have continued pain for several weeks. She should return for any new or worsening issues, otherwise follow-up as an outpatient. Lab Data Attestation: I reviewed the patient's lab results. Labs: Laboratory Results - last 24 hr 06/26/20 06/26/20 06/26/20 01:25 01:25 01:28 WBC 10.3 RBC 4.60 Hgb 13.4 Hct 41.1 MCV 89.3 MCH 29.1 MCHC 32.6 RDW Std Deviation 37.7 RDW Coeff of Brandee 11.8 Plt Count 415 MPV 11.2 Immature Gran % (Auto) 0.300 Neut % (Auto) 48.3 Lymph % (Auto) 40.6 Gregg % (Auto) 8.4 Eos % (Auto) 1.6 Baso % (Auto) 0.8 Absolute Neuts (auto) 5.0 Absolute Lymphs (auto) 4.19 Nucleated RBC % 0 Sodium Potassium Chloride Carbon Dioxide Anion Gap BUN Creatinine Estim Creat Clear Calc Est GFR (MDRD) Af Amer Est GFR (MDRD) Non-Af BUN/Creatinine Ratio Glucose Calcium Total Bilirubin AST ALT Alkaline Phosphatase Total Protein Albumin Globulin Albumin/Globulin Ratio Lipase Urine Color Yellow Urine Clarity Clear Urine pH 7.0 Ur Specific [place] 1.010 Urine Protein Negative Urine Glucose (UA) Normal Urine Ketones Negative Urine Occult Blood Negative Urine Nitrite Negative Urine Bilirubin Negative Urine Urobilinogen Normal Ur Leukocyte Esterase Negative Urine RBC 0 SEEN Urine WBC 0 SEEN Ur Squamous Epith Cells 0-5 SEEN Urine Bacteria 0 SEEN Urine Mucus 0 SEEN Urine Test Negative 06/26/20 01:28 WBC RBC Hgb Hct MCV MCH MCHC RDW Std Deviation RDW Coeff of Brandee Plt Count MPV Immature Gran % (Auto) Neut % (Auto) Lymph % (Auto) Gregg % (Auto) Eos % (Auto) Baso % (Auto) Absolute Neuts (auto) Absolute Lymphs (auto) Nucleated RBC % Sodium 141 Potassium 3.2 L Chloride 107 Carbon Dioxide 30.0 Anion Gap 4 L BUN 13 Creatinine 0.64 Estim Creat Clear Calc 100.13 Est GFR (MDRD) Af Amer 148 Est GFR (MDRD) Non-Af 123 BUN/Creatinine Ratio 20.3 H Glucose 90 Calcium 8.2 L Total Bilirubin 0.30 AST 8 L ALT 16 Alkaline Phosphatase 86 Total Protein 7.0 Albumin 3.8 Globulin 3.2 Albumin/Globulin Ratio 1.2 Lipase 115 Urine Color Urine Clarity Urine pH Ur Specific [place] Urine Protein Urine Glucose (UA) Urine Ketones Urine Occult Blood Urine Nitrite Urine Bilirubin Urine Urobilinogen Ur Leukocyte Esterase Urine RBC Urine WBC Ur Squamous Epith Cells Urine Bacteria Urine Mucus Urine Test Discharge Plan Triage Chief Complaint: Abd Pain ED Provider: Joseph Mann Dx/Rx/DC Orders Instructions: ED Adenitis, Mesenteric Prescriptions: No Action topiramate 50 MG tablet 100 mg PO DAILY RF: 0 folic acid 0.8 MG tablet 0.8 mg PO DAILY RF: 0 prednisone 20 MG tablet 40 mg PO DAILY 3 Days Qty: 6 RF: 0 omeprazole [omeprazole] 20 MG capsule 20 mg PO DAILY Qty: 30 RF: 0 ondansetron 4 mg tablet,disintegrating 4 mg PO Q8H PRN (Reason: nausea and vomiting) Qty: 10 RF: 0 naproxen [Naprosyn] 500 mg tablet 500 mg PO BID PRN (Reason: pain) Qty: 20 RF: 0 Primary Care Provider: Stevie Dixon NP Referrals: Stevie Dixon NP, PARKING ENFORCEMENT OFFICER-C [Primary Care Provider] - Disposition Disposition: Home, self care
[2020-06-26 02:36] VITALS: RESP 16
== END 2020-06-26 02:36 | disposition home or self-care (01) ==
PROVIDERS: Emergency Provider Emergency Medicine; PCP Nurse Practitioner Family
DX: I88.0 Nonspecific mesenteric lymphadenitis (principal); F17.200 Nicotine dependence, unspecified, uncomplicated
CPT/HCPCS: 80053; 81001; 81025; 83690; 85025; 96374; 96375; 99285; A4216; J2405

== ENCOUNTER → 2020-06-27 | Outpatient (CLI) | payer MEDICAID, SELFPAY ==
[2020-06-26 01:15] VITALS: BMI 16.9
[2020-06-27 12:38] LABS: Absolute Lymphocyte Count 1.78 X10^3/uL (0.83-4.51); Absolute Neutrophil Count 4.5 X10^3/uL (2.0-7.7); Basophil# 0.04 X10^3/uL; Basophil% 0.5 % (0-1); Eosinophil# 0.32 X10^3/uL; Eosinophils% 4.4 % (0-5); Hematocrit 42.6 % (37-47); Hemoglobin 14.2 g/dL (12.0-15.0); Lymphocyte # 1.78 X10^3/ul (0.83-4.51); Lymphocyte % 24.4 % (19-41); Mean Corp Hgb Conc 33.3 g/dL (32-36); Mean Corpuscular Hgb 29.5 pg (27.0-32.0); Mean Corpuscular Volume 88.4 fL (81-99); Mean Platelet Vol. 11.5 fl (6.2-12.0); Monocyte# 0.63 X10^3/uL; Monocyte% 8.6 % (0-10); NRBC Flagged by Analyzer 0 % (0-5); Neutrophil % 61.8 % (47-70); Platelet Count 377 K/mm3 (150-450); RBC Distribution Width CV 11.9 % (11.6-14.6); RBC Distribution Width SD 37.9 fl (35.1-43.9); Red Blood Count 4.82 M/mm3 (4.2-5.4); White Blood Count 7.3 K/mm3 (4.4-11.0)
[2020-06-27 12:39] LABS: Erythrocyte Sedimentation Rate < 1 mm/hr (0-30)
== END | disposition home or self-care (01) ==
LOC: LABSPEC 12:22
PROVIDERS: PCP Nurse Practitioner Family; Referring Provider Nurse Practitioner Family; Visit Provider Nurse Practitioner Family
DX: I88.0 Nonspecific mesenteric lymphadenitis (principal); R10.32 Left lower quadrant pain
CPT/HCPCS: 85025; 85652; 86140

== ENCOUNTER 2020-07-09 23:01 | Emergency (ER) | payer MEDICAID, SELFPAY ==
[2020-07-09 23:01] VITALS: BP 115/79; PULSE 105; RESP 16; TEMP 36.6; O2SAT 100; BMI 16.0
--- NOTE | 2020-07-09 23:17 | CT_ITS ---
STUDY: CT BRAIN WITHOUT CONTRAST REASON FOR EXAM: Female, 24 years old. fall head injury RADIATION DOSAGE (If Supplied By Facility): CTDIvol = ( 44.99 ) mGy, DLP = ( 779.24 ) mGycm TECHNIQUE: Transaxial CT imaging of the brain was performed without administration of intravenous contrast material. Individualized dose optimization techniques were used for this CT. COMPARISON: No relevant priors. FINDINGS: Normal soft tissue structures. Normal calvarium. Normal size ventricles and extra-axial spaces for the patient''s age. Normal white matter tracts of the cerebral hemispheres. Normal basal ganglia and thalami. Normal brainstem. Normal cerebellum. There is no intracranial hemorrhage. There are no findings of an acute ischemic infarction. Normal visualized paranasal sinuses. CT/Brain/Head without Contrast IMPRESSION: Normal unenhanced CT scan of the brain. Electronically Signed: Harshal Gloria DO at 0:11 EDT Tel , Service support ,
--- NOTE | 2020-07-09 23:18 | EDS_ITS ---
HPI History of Present Illness Chief Complaint: Seizure Narrative Narrative: Patient presents with a fall. She stated she tripped over a boot at home. This was in her bedroom. She fell down and hit her right cheekbone on the ground. She blacked out for a short period of time. Currently she feels nauseous and mild headache and pain where she hit her face. She does not think she has a seizure she does have a seizure disorder. She is not postictal. Current severity is mild. Denies any neck pain. She is not on blood thinners. Think she may have had a concussion. [facility] Medical History Seizure Home Medications topiramate 100 mg PO DAILY 01/30/20 [History Last Taken Unknown] folic acid 0.8 mg PO DAILY 05/19/20 [History Last Taken Unknown] naproxen [Naprosyn] 500 mg PO BID PRN #20 tab 06/21/20 [Rx Last Taken Unknown] omeprazole 20 mg PO DAILY #30 cap 06/21/20 [Rx Last Taken Unknown] ondansetron 4 mg PO Q8H PRN #10 tab 06/21/20 [Rx Last Taken Unknown] prednisone 40 mg PO DAILY 3 Days #6 tab 06/21/20 [Rx Last Taken Unknown] Allergy/AdvReac Type Severity Reaction Status Date / Time risperidone [From Risperdal] Allergy Swelling Verified 07/09/20 23:01 Sulfa (Sulfonamide Allergy Anaphylaxis Verified 07/09/20 23:01 Antibiotics) Social History Smoking Status: Current every day smoker tobacco type: cigarettes and e- cigarettes ROS ROS ED ROS Narrative ROS General: Denies fever, chills, sweats Eyes: Denies visual changes, blurred vision, double vision ENT: Denies ear pain, rhinorrhea, sore throat Cardiovascular: Denies chest pain, palpitations, heart racing Respiratory: Denies dyspnea, cough, sputum, dyspnea on exertion, orthopnea,PND GI: Denies abdominal pain, nausea, vomiting, diarrhea, constipation, melena : Denies dysuria, hematuria, frequency Musculoskeletal: Denies myalgias, arthralgias, neck pain, back pain Skin: Denies rash, abscess, abrasions Neuro: See HPI Psych: Denies depression, anxiety Endo: Denies polyuria, polydipsia, polyphagia Heme: Denies easy bruising, easy bleeding, lymphadenopathy Allergy: Denies hives, swelling EXAM Physical Exam Narrative Exam Narrative: Vital signs reviewed General: Well-nourished well-developed Head: Normocephalic atraumatic. She has mild tenderness to her right zygoma that is slightly swollen. There is no bony step-off. This is very mild. Eyes: Pupils equal round and reactive to light extraocular movements intact ENT: TMs clear no hemotympanum no trauma Neck: Nontender full range of motion Cardiovascular: Regular rate rhythm no murmurs normal S1-S2 Respiratory: No distress clear to auscultation bilaterally chest nontender Abdomen: Soft nontender nondistended normal bowel sounds no masses Back: Nontender no CVA tenderness Extremities: Nontender active range of motion ?4 extremities no trauma Skin: Normal color no trauma Neuro alert oriented cranial nerves II through XII intact normal strength sensation reflexes Const Vital Signs: 07/09/20 23:01 Temperature 97.8 F Temperature Source Temporal Pulse Rate 105 H Respiratory Rate 16 Blood Pressure 115/79 Blood Pressure Mean 91 Pulse Ox 100 Oxygen Delivery Method Room Air MDM MDM MDM Narrative Medical decision making narrative: Patient given Tylenol and Zofran orally. CT head obtained. CT head showed nothing acute. At this time I feel the patient just has a mild blunt head injury with slight concussive symptoms. We will follow-up as an outpatient Discharge Plan Triage Chief Complaint: Seizure ED Provider: Onel Lynch Dx/Rx/DC Orders Prescriptions: No Action topiramate 50 MG tablet 100 mg PO DAILY RF: 0 folic acid 0.8 MG tablet 0.8 mg PO DAILY RF: 0 prednisone 20 MG tablet 40 mg PO DAILY 3 Days Qty: 6 RF: 0 omeprazole [omeprazole] 20 MG capsule 20 mg PO DAILY Qty: 30 RF: 0 ondansetron 4 mg tablet,disintegrating 4 mg PO Q8H PRN (Reason: nausea and vomiting) Qty: 10 RF: 0 naproxen [Naprosyn] 500 mg tablet 500 mg PO BID PRN (Reason: pain) Qty: 20 RF: 0 Primary Care Provider: Stevie Dixon NP
[2020-07-09] MEDS: Ondansetron 8 MG Tablet PO (23:28)
[2020-07-09] MEDS: Acetaminophen 500 MG Tablet 1000 MG PO (23:28)
[2020-07-10 00:36] VITALS: BP 116/84; PULSE 76; RESP 18; O2SAT 99
== END 2020-07-10 00:38 | disposition home or self-care (01) ==
PROVIDERS: Emergency Provider Emergency Medicine; PCP Nurse Practitioner Family
DX: F07.81 Postconcussional syndrome (principal); G40.909 Epilepsy, unspecified, not intractable, without status epilepticus; F17.210 Nicotine dependence, cigarettes, uncomplicated; Z79.899 Other long term (current) drug therapy
CPT/HCPCS: 70450; 99283; A4216

== ENCOUNTER 2020-07-14 07:54 | Emergency (ER) | payer MEDICAID, SELFPAY ==
[2020-07-14 07:55] VITALS: BP 128/96; PULSE 94; RESP 16; TEMP 37.3; O2SAT 99; BMI 16.0
[2020-07-14] MEDS: Ondansetron ODT 4 MG Tablet PO (08:03)
[2020-07-14] MEDS: Acetaminophen 500 MG Tablet 1000 MG PO (08:03)
--- NOTE | 2020-07-14 08:03 | EX.ED.DYSGE1 ---
HPI History of Present Illness Chief Complaint: Nausea/Vomiting Informant: patient Narrative Narrative: 24-year-old female presents with concern for abdominal cramping with nausea and vomiting. States that she had a significant amount of alcohol last night. States that she normally does not drink heavily. States that she had multiple shots of Everclear. States that every time she gets up to move around she has significant nausea and wants to vomit. States that she has abdominal cramping which is intermittent and diffuse. Denies any vaginal bleeding or discharge. Denies any fever, chills, cough, chest pain, shortness of breath, urinary symptoms. [facility] Medical History Seizure Home Medications topiramate 100 mg PO DAILY 01/30/20 [History Last Taken Unknown] folic acid 0.8 mg PO DAILY 05/19/20 [History Last Taken Unknown] ondansetron 4 mg PO Q8H PRN PRN #10 tab 07/14/20 [Rx Last Taken Unknown] Allergy/AdvReac Type Severity Reaction Status Date / Time risperidone [From Risperdal] Allergy Swelling Verified 07/09/20 23:01 Sulfa (Sulfonamide Allergy Anaphylaxis Verified 07/09/20 23:01 Antibiotics) Social History Smoking Status: Current every day smoker tobacco type: cigarettes and e-cigarettes ROS ROS ED Constitutional Constitutional ED: Denies chills, fever(s) or sweats Eyes Eyes: Denies blurry vision, change in vision or diplopia ENT ENT ED: Denies rhinorrhea or sore throat Cardiovascular Cardiovascular: Denies chest pain, orthopnea, palpitations or racing heartbeat Respiratory/Chest Respiratory/Chest: Denies cough, dyspnea, dyspnea on exertion, orthopnea or sputum Gastrointestinal Gastrointestinal: Reports abdominal pain, nausea and vomiting; Denies constipation, diarrhea or melena Genitourinary Genitourinary ED: Denies dysuria, hematuria or urinary frequency Musculoskeletal Musculoskeletal: Denies arthralgias, myalgias or neck pain Integumentary Denies rash Neurologic Neurologic: Denies headache(s), paresthesias or weakness Psychiatric Psychiatric: Denies anxiety or depression Hematologic/Lymphatic Hematologic/Lymphatic: Denies easy bleeding or easy bruising Allergic/Immunologic Allergic/Immunologic ED: Denies mouth swelling or tongue swelling EXAM Physical Exam Const Vital Signs: 07/14/20 07:55 Temperature 99.2 F H Temperature Source Oral Pulse Rate 94 Respiratory Rate 16 Blood Pressure 128/96 H Blood Pressure Mean 106 Pulse Ox 99 Oxygen Delivery Method Room Air Positive well nourished and well developed General Appearance ED: well developed HEENT Reports TM's clear and moist mucous membranes normocephalic and atraumatic Tympanic Membrane ED: Yes TM's clear Eyes PERRL and EOMs intact bilaterally Neck no lymphadenopathy, supple and no JVD Chest Wall inspection of chest normal Resp normal respiratory effort and clear to auscultation bilaterally Cardio regular rate, S1 normal heart sound, S2 normal heart sound and no murmurs Peripheral Pulses: pulses 2+ throughout GI soft to palpation, non-tender and non-distended Back/Spine no CVA tenderness and no thoracic nor lumbar tenderness Extremity normal to inspection General Extremety ED: Negative for edema or tenderness General Extremity: Negative for edema Neuro oriented x3, CN's II-XII intact bilaterally and no sensory deficits noted Sensorium / Orientation: alert Motor Exam: strength 5/5 throughout Psych mental status grossly normal Skin no rashes or lesions noted MDM MDM MDM Narrative Medical decision making narrative: Patient appears well and nontoxic. Vital signs within normal limits. Patient given Tylenol, Zofran, Pepcid p.o. feeling much improved. On reevaluation at 0905 patient is tolerating p.o. Will be given Zofran for home. Advised on continued hydration. Asked to return for new or worsening symptoms. Patient agreeable and discharged home in stable condition. Discharge Plan Triage Chief Complaint: Nausea/Vomiting ED Provider: Alex Fuller Dx/Rx/DC Orders Clinical Impression: Nausea & vomiting Instructions: ED Vomiting (Adult) Prescriptions: New ondansetron 4 mg tablet,disintegrating 4 mg PO Q8H PRN PRN (Reason: Nausea) Qty: 10 RF: 0 No Action topiramate 50 MG tablet 100 mg PO DAILY RF: 0 folic acid 0.8 MG tablet 0.8 mg PO DAILY RF: 0 Primary Care Provider: Stevie Dixon NP Referrals: Stevie Dixon NP, DINING MANAGER-C [Primary Care Provider] - 2 Days Disposition Disposition: Home, self care
[2020-07-14] MEDS: Famotidine 20 MG Tablet PO (08:04)
[2020-07-14 09:15] VITALS: BP 106/74; PULSE 90; RESP 6; O2SAT 99
== END 2020-07-14 09:15 | disposition home or self-care (01) ==
PROVIDERS: Emergency Provider Emergency Medicine; PCP Nurse Practitioner Family
DX: R11.2 Nausea with vomiting, unspecified (principal); F17.210 Nicotine dependence, cigarettes, uncomplicated
CPT/HCPCS: 99283

== ENCOUNTER 2020-07-18 21:34 | Emergency (ER) | payer MEDICAID, SELFPAY ==
[2020-07-18 21:35] VITALS: BP 154/92; PULSE 100; RESP 16; TEMP 37.1; O2SAT 98; BMI 16.0
--- NOTE | 2020-07-18 22:06 | EX.ED.DYSGE1 ---
HPI History of Present Illness Chief Complaint: Allergic Reaction Detail of Chief Complaint: Possible allergic reaction to Covid vaccine Informant: patient Narrative Narrative: Patient had a Covid vaccine today approximately 1 PM. She got the Covid vaccine by [employer]. Patient states that eventually she developed a sore arm and then started having some itching around her mouth and face. She has a fullness around her throat. She took some Benadryl which seemed to help initially. She denies any rashes. She denies any real difficulty breathing. [facility] Medical History Seizure Home Medications topiramate 100 mg PO DAILY 01/30/20 [History Last Taken Unknown] folic acid 0.8 mg PO DAILY 05/19/20 [History Last Taken Unknown] ondansetron 4 mg PO Q8H PRN PRN #10 tab 07/14/20 [Rx Last Taken Unknown] Allergy/AdvReac Type Severity Reaction Status Date / Time quetiapine [From Seroquel] Allergy Vomiting Verified 07/18/20 21:37 risperidone [From Risperdal] Allergy Swelling Verified 07/18/20 21:37 Sulfa (Sulfonamide Allergy Anaphylaxis Verified 07/18/20 21:37 Antibiotics) Social History Smoking Status: Current every day smoker tobacco type: cigarettes and e-cigarettes ROS ROS ED Constitutional Constitutional ED: Reports systems reviewed and no addt'l complaints, except as documented; Denies body ache(s), change in weight or chills Eyes Eyes: Denies acute decrease in peripheral vision, change in vision, double vision or loss of vision ENT ENT ED: Reports none; Denies ear pain, lip swelling, loss taste/smell, neck pain, otalgia or sore throat Cardiovascular Cardiovascular: Reports none; Denies abdominal pain, chest pain with activity, leg edema, lightheadedness, palpitations, rapid heart rate or syncope Respiratory/Chest Respiratory/Chest: Reports none; Denies change in mental status, dry cough, dyspnea, hemoptysis, shortness of breath at rest or shortness of breath with exertion Gastrointestinal Gastrointestinal: Reports none; Denies abdominal pain, change in stool character, diarrhea, hematemesis, hematochezia, melena, rectal bleeding or vomiting Genitourinary Genitourinary ED: Reports none; Denies abdominal discomfort, anuria, dysuria, genital pain or polyuria Musculoskeletal Musculoskeletal: Reports none; Denies arthralgias, back pain, difficulty walking, extremity pain, muscle weakness or myalgias Integumentary Reports none; Denies abscess or rash Neurologic Neurologic: Reports none; Denies abnormal gait, confusion, focal weakness, frequent falls, headache(s), loss of vision, numbness, paresthesias, radicular pain, vertigo or weakness Psychiatric Psychiatric: Reports systems reviewed and no addt'l complaints, except as documented and none; Denies behavioral changes, confusion, difficulty concentrating, hallucinations, suicidal ideation, tactile hallucinations or visual hallucinations Endocrine Endocrinology: Denies none, cold intolerance, excessive sweating, fatigue or heat intolerance Hematologic/Lymphatic Hematologic/Lymphatic: Reports none; Denies anemia, easy bleeding or easy bruising Allergic/Immunologic Allergic/Immunologic ED: Reports other Details: Itching around face and mouth EXAM Physical Exam Const Vital Signs: 07/18/20 21:35 Temperature 98.8 F Temperature Source Temporal Pulse Rate 100 Respiratory Rate 16 Blood Pressure 154/92 H Blood Pressure Mean 112 Pulse Ox 98 Oxygen Delivery Method Room Air Positive well nourished and well developed General Appearance ED: well developed and NAD HEENT Reports TM's clear and moist mucous membranes HEENT Narrative: No angioedema. No rashes noted. normocephalic and atraumatic; Negative for trauma or tenderness Tympanic Membrane ED: Yes TM's clear Eyes PERRL and EOMs intact bilaterally General Eye ED: Negative for pale conjunctiva or scleral icterus Neck no lymphadenopathy, supple and no JVD General: Negative for tenderness Chest Wall inspection of chest normal and palpation of chest normal Chest: Negative for tenderness Resp normal respiratory effort and clear to auscultation bilaterally Effort and Inspection: Negative for respiratory distress or pain with movement Auscultation: Negative for rhonchi, wheezes or diminished lung sounds Cardio regular rate, regular rhythm, S1 normal heart sound, S2 normal heart sound and no murmurs Peripheral Pulses: pulses 2+ throughout GI normal to inspection, nondistended, normoactive bowel sounds, soft to palpation, non-tender, non-distended and no masses Back/Spine no CVA tenderness and no thoracic nor lumbar tenderness Extremity normal to inspection General Extremety ED: Negative for edema General Extremity: Negative for edema Neuro oriented x3, CN's II-XII intact bilaterally, no sensory deficits noted and gait normal Sensorium / Orientation: awake, alert, oriented to person, oriented to place and oriented to time Motor Exam: strength 5/5 throughout and strength abnormal Psych mental status grossly normal Skin no rashes or lesions noted and no wounds MDM MDM MDM Narrative Medical decision making narrative: Patient received Benadryl 25 mg p.o. as well as a milligram of Ativan. She was observed in the department for over an hour and she felt markedly improved after treatment. At this point I suspect she may be having side effect related to the vaccine and potentially component of anxiety as well. Patient to continue with Benadryl for any itching. She is to return to the emergency department if lip swelling, difficulty breathing, diffuse rash, or condition should worsen anyway. Discharge Plan Triage Chief Complaint: Allergic Reaction ED Provider: Ovi Frazier Dx/Rx/DC Orders Clinical Impression: Side effect of medication Instructions: ED Allergic Reaction Local Other Prescriptions: No Action topiramate 50 MG tablet 100 mg PO DAILY RF: 0 folic acid 0.8 MG tablet 0.8 mg PO DAILY RF: 0 ondansetron 4 mg tablet,disintegrating 4 mg PO Q8H PRN PRN (Reason: Nausea) Qty: 10 RF: 0 Primary Care Provider: Stevie Dixon NP Referrals: Stevie Dixon NP, NARROW FABRIC CALENDERER-C [Primary Care Provider] - 3-5 Days Disposition Disposition: Home, self care
[2020-07-18] MEDS: DiphenhydrAMINE 25 MG Capsule PO (22:15)
[2020-07-18] MEDS: LORazepam 1 MG Tablet PO (22:15)
== END 2020-07-18 23:50 | disposition home or self-care (01) ==
PROVIDERS: Emergency Provider Emergency Medicine; PCP Nurse Practitioner Family
DX: T78.40XA Allergy, unspecified, initial encounter (principal); R56.9 Unspecified convulsions; F17.210 Nicotine dependence, cigarettes, uncomplicated; Z79.899 Other long term (current) drug therapy
CPT/HCPCS: 99283

== ENCOUNTER 2020-07-26 21:18 | Emergency (ER) | payer MEDICAID, SELFPAY ==
[2020-07-26 21:18] VITALS: BP 110/78; PULSE 96; RESP 15; TEMP 36.9; O2SAT 99; BMI 15.7
--- NOTE | 2020-07-26 21:38 | US_ITS ---
HISTORY: Left lower quadrant pain. Beta hCG 1739. 66 images. No comparison imaging this . Findings: Endovaginal imaging: The uterus measures 7.1 x 3.8 x 4.6 cm. Myometrium is fairly homogeneous. Adnexal vessels are prominent. Within the uterine fundus there is a small fluid collection. A decidual reaction is suggested but not definite. The right ovary measures 1.9 x 3.1 x 2.3 cm. Color Doppler imaging demonstrates flow to right ovarian parenchyma. The left ovary measures 1.4 x 2.5 x 2.2 cm. Color Doppler and pulse-wave Doppler imaging demonstrates normal arterial flow to left ovarian parenchyma. Pulse-wave Doppler imaging the right ovary demonstrates arterial flow. Magnified views of the fluid collection within the uterine fundus consistent with a gestational sac is demonstrated. The gestational sac does contain a tiny amount of tissue which could represent a fetus. The gestational sac measures 4 x 2 x 3 mm for mean sac diameter of 3 mm. Color Doppler, pulsed-wave Doppler, and M-mode imaging were not attempted over this small piece of tissue within the gestational sac within the uterine fundus. The patient has a septate uterus. US/Transvaginal w/Preg US IMPRESSION: Probable IUP too early to see. Gestational sac with a mean sac diameter of 5 weeks. Recommend follow-up quantitative beta-hCG and repeat ultrasound as needed. at 2301 Reported and signed by: Ace Knight MD Electronically Signed: Ace Knight MD at 23:00 EDT Tel , Service support ,
[2020-07-26 21:57] LABS: Absolute Lymphocyte Count 2.87 X10^3/uL (0.83-4.51); Absolute Neutrophil Count 4.3 X10^3/uL (2.0-7.7); Basophil# 0.07 X10^3/uL; Basophil% 0.8 % (0-1); Eosinophil# 0.45 X10^3/uL; Eosinophils% 5.3 % (0-5); Hemoglobin 13.1 g/dL (12.0-15.0); Lymphocyte # 2.87 X10^3/ul (0.83-4.51); Lymphocyte % 33.5 % (19-41); Mean Corp Hgb Conc 33.6 g/dL (32-36); Mean Corpuscular Hgb 29.2 pg (27.0-32.0); Mean Corpuscular Volume 86.9 fL (81-99); Mean Platelet Vol. 11.2 fl (6.2-12.0); Monocyte# 0.88 X10^3/uL; Monocyte% 10.3 % (0-10); NRBC Flagged by Analyzer 0 % (0-5); Neutrophil # 4.26 X10^3/uL (2.7-7.7); Neutrophil % 49.6 % (47-70); Platelet Count 367 K/mm3 (150-450); RBC Distribution Width CV 12.1 % (11.6-14.6); RBC Distribution Width SD 38.8 fl (35.1-43.9); Red Blood Count 4.49 M/mm3 (4.2-5.4); White Blood Count 8.6 K/mm3 (4.4-11.0)
[2020-07-26 21:59] LABS: Bacteria 0 SEEN /hpf (None Seen); Mucous, Urine 0 SEEN /hpf (<or=2+); Red Blood Cells-Urine 0 SEEN /hpf (0-5); White Blood Cells 0 SEEN /hpf (0-5)
[2020-07-26 22:04] LABS: Color, Urine Yellow (Yellow); Glucose, Dipstick Normal (Normal); Ketone-Dipstick Negative (Negative); Leukocyte Esterase-Dipstick Negative /ul (Negative); Nitrite-Dipstick Negative (Negative); Occult Blood-Urine Negative /ul (Negative); Protein-Dipstick Negative (Negative); Urine Bilirubin Dipstick Negative (Negative); Urine Clarity Clear (Clear); Urine Urobilinogen Normal (Normal)
[2020-07-26 22:12] LABS: Anion Gap 7 (5-15); BUN 9 mg/dL (7-18); Calcium,Total 8.4 mg/dL (8.5-10.1); Chloride 107 mmol/L (98-107); EST Glomerular Filtration Rate 132 mL/min (>60); Est Glom Filt Rate - Afr Amer 160 mL/min (>60); Estimated Creatinine Clearance 100.05 ml/min; Glucose 85 mg/dL (74-106); Potassium 3.5 mmol/L (3.5-5.1); Sodium Level 140 mmol/L (136-145)
--- NOTE | 2020-07-26 22:17 | EDS_ITS ---
HPI History of Present Illness Chief Complaint: Abd Pain Informant: patient Onset/Context/Timing Onset: Today Current Severity: Mild Maximum Severity: Moderate Narrative Narrative: Patient presents secondary to lower abdominal pain. She states she is currently 5 to 6 weeks . She is been exhausted and tired all day but laid down to rest couple hours ago. She became very nauseated and developed pain in her left lower quadrant. She denies any bleeding or spotting. She has not yet had an ultrasound. [facility] Medical History (Updated 07/26/20 @ 23:[address] Princess Haro MD) Seizure SVT (supraventricular tachycardia) Home Medications topiramate 100 mg PO DAILY 01/30/20 [History Last Taken Unknown] folic acid 0.8 mg PO DAILY 05/19/20 [History Last Taken Unknown] ondansetron 4 mg PO Q8H PRN PRN #10 tab 07/14/20 [Rx Last Taken Unknown] levetiracetam [Keppra] mg PO 07/26/20 [History Last Taken Unknown] Allergy/AdvReac Type Severity Reaction Status Date / Time quetiapine [From Seroquel] Allergy Vomiting Verified 07/26/20 21:22 risperidone [From Risperdal] Allergy Swelling Verified 07/26/20 21:22 Sulfa (Sulfonamide Allergy Anaphylaxis Verified 07/26/20 21:22 Antibiotics) Social History Smoking Status: Current every day smoker tobacco type: cigarettes and e- cigarettes ROS ROS ED Constitutional Constitutional ED: Denies chills or fever(s) Eyes Eyes: Denies change in vision ENT ENT ED: Denies sore throat Cardiovascular Cardiovascular: Denies chest pain Respiratory/Chest Respiratory/Chest: Denies cough or dyspnea Gastrointestinal Gastrointestinal: Reports abdominal pain and nausea; Denies diarrhea or vomiting Genitourinary Genitourinary ED: Denies dysuria Musculoskeletal Musculoskeletal: Denies back pain Integumentary Denies rash Neurologic Neurologic: Denies headache(s) or weakness Psychiatric Psychiatric: Denies anxiety or depression Endocrine Endocrinology: Denies polydipsia or polyuria Allergic/Immunologic Allergic/Immunologic ED: Denies urticaria EXAM Physical Exam Const Vital Signs: 07/26/20 21:18 Temperature 98.4 F Temperature Source Temporal Pulse Rate 96 Respiratory Rate 15 Blood Pressure 110/78 Blood Pressure Mean 88 Pulse Ox 99 Oxygen Delivery Method Room Air Positive well nourished and well developed General Appearance ED: well developed HEENT Reports normocephalic and head/scalp atraumatic Eyes PERRL and EOMs intact bilaterally Neck supple Chest Wall inspection of chest normal and palpation of chest normal Resp normal respiratory effort and clear to auscultation bilaterally Cardio regular rate and regular rhythm GI Auscultation: hypoactive bowel sounds Palpation: soft and tender LLQ; Negative for guarding or rebound tenderness present Extremity normal to inspection Neuro oriented x3 and no sensory deficits noted Sensorium / Orientation: alert Motor Exam: strength 5/5 throughout Psych mental status grossly normal Skin no rashes or lesions noted MDM MDM MDM Narrative Medical decision making narrative: Lab work and urinalysis are obtained. Pelvic ultrasound is obtained to rule out ectopic . Lab Data Attestation: I reviewed the patient's lab results. Labs: Laboratory Results - last 24 hr 07/26/20 07/26/20 07/26/20 21:40 21:40 21:40 WBC 8.6 RBC 4.49 Hgb 13.1 Hct 39.0 MCV 86.9 MCH 29.2 MCHC 33.6 RDW Std Deviation 38.8 RDW Coeff of Brandee 12.1 Plt Count 367 MPV 11.2 Immature Gran % (Auto) 0.500 Neut % (Auto) 49.6 Lymph % (Auto) 33.5 [place] % (Auto) 10.3 H Eos % (Auto) 5.3 H Baso % (Auto) 0.8 Absolute Neuts (auto) 4.3 Absolute Lymphs (auto) 2.87 Nucleated RBC % 0 Sodium 140 Potassium 3.5 Chloride 107 Carbon Dioxide 26.0 Anion Gap 7 BUN 9 Creatinine 0.60 Estim Creat Clear Calc 100.05 Est GFR (MDRD) Af Amer 160 Est GFR (MDRD) Non-Af 132 BUN/Creatinine Ratio 15.0 Glucose 85 Calcium 8.4 L HCG, Quant 1739 H Urine Color Urine Clarity Urine pH Ur Specific [place] Urine Protein Urine Glucose (UA) Urine Ketones Urine Occult Blood Urine Nitrite Urine Bilirubin Urine Urobilinogen Ur Leukocyte Esterase Urine RBC Urine WBC Ur Squamous Epith Cells Urine Bacteria Urine Mucus Blood Type 07/26/20 07/26/20 21:40 21:50 WBC RBC Hgb Hct MCV MCH MCHC RDW Std Deviation RDW Coeff of Brandee Plt Count MPV Immature Gran % (Auto) Neut % (Auto) Lymph % (Auto) [place] % (Auto) Eos % (Auto) Baso % (Auto) Absolute Neuts (auto) Absolute Lymphs (auto) Nucleated RBC % Sodium Potassium Chloride Carbon Dioxide Anion Gap BUN Creatinine Estim Creat Clear Calc Est GFR (MDRD) Af Amer Est GFR (MDRD) Non-Af BUN/Creatinine Ratio Glucose Calcium HCG, Quant Urine Color Yellow Urine Clarity Clear Urine pH 7.0 Ur Specific [place] 1.030 Urine Protein Negative Urine Glucose (UA) Normal Urine Ketones Negative Urine Occult Blood Negative Urine Nitrite Negative Urine Bilirubin Negative Urine Urobilinogen Normal Ur Leukocyte Esterase Negative Urine RBC 0 SEEN Urine WBC 0 SEEN Ur Squamous Epith Cells 0-5 SEEN Urine Bacteria 0 SEEN Urine Mucus 0 SEEN Blood Type O POSITIVE Radiography Diagnostic Testing: Radiology Impression Obstetrics Ultrasound 07/26/20 21:38 IMPRESSION: Probable IUP too early to see. Gestational sac with a mean sac diameter of 5 weeks. Recommend follow-up quantitative beta-hCG and repeat ultrasound as needed. at 2301 Reported and signed by: Ace Knight MD Electronically Signed: Ace Knight MD at 23:00 EDT Tel , Service support , Treatment and Re-Evaluation Comments:: Test results discussed with patient and significant other at bedside. Gestational sac noted in the uterus and measurements consistent with approximately 5-week . Quant is 1739. On repeat evaluation patient is resting comfortably and states her nausea is has completely subsided. I did encourage her to follow-up with her OB for repeat quant on Tuesday if she continues to have pain. She declines any prescription for nausea at this time. Discharge Plan Triage Chief Complaint: Abd Pain ED Provider: Princess Haro Dx/Rx/DC Orders Clinical Impression: Pelvic pain, First trimester Instructions: ED Abdominal Pain, Early Prescriptions: No Action topiramate 50 MG tablet 100 mg PO DAILY RF: 0 folic acid 0.8 MG tablet 0.8 mg PO DAILY RF: 0 ondansetron 4 mg tablet,disintegrating 4 mg PO Q8H PRN PRN (Reason: Nausea) Qty: 10 RF: 0 levetiracetam [Keppra] 250 mg Tablet PO RF: 0 Primary Care Provider: Stevie Dixon NP Referrals: Vesta Wood MD [STAFF PHYSICIAN] - 3-5 Days if not improving Stevie Dixon NP, [employer]ATER-C [Primary Care Provider] - Disposition Disposition: Home, self care
[2020-07-26 22:30] LABS: hCG Titer Quant., Serum 1739 mIU/mL (1-3)
[2020-07-26 22:37] LABS: Squamous Epithelial Cells - UA 0-5 SEEN /hpf (5-10)
[2020-07-26 23:29] VITALS: BP 101/67; PULSE 76; RESP 16; O2SAT 99
== END 2020-07-26 23:29 | disposition home or self-care (01) ==
PROVIDERS: Emergency Provider Emergency Medicine; PCP Nurse Practitioner Family
DX: O26.891 Other specified pregnancy related conditions, first trimester (principal); R10.2 Pelvic and perineal pain; O99.331 Smoking (tobacco) complicating pregnancy, first trimester; F17.210 Nicotine dependence, cigarettes, uncomplicated; Z3A.01 Less than 8 weeks gestation of pregnancy
CPT/HCPCS: 76817; 80048; 81001; 84702; 85025; 86900; 86901; 99282; A4216

== ENCOUNTER 2020-08-03 21:46 | Emergency (ER) | payer MEDICAID, SELFPAY ==
[2020-08-03 21:47] VITALS: BP 125/85; PULSE 100; RESP 18; TEMP 36.7; O2SAT 96; BMI 15.5
--- NOTE | 2020-08-03 21:59 | US_ITS ---
STUDY: FIRST TRIMESTER OBSTETRICAL ULTRASOUND REASON FOR EXAM: Female, 24 years old vaginal bleeding for one day. Positive test. LMP: 06/23/2020. TECHNIQUE: Transvaginal TECHNICAL QUALITY: Adequate. PRIOR ULTRASOUND: July 26, 2020. FINDINGS: There is visualization of a single gestational sac in a normal intrauterine position. The mean sac diameter (MSD) measures 1.3 cm, indicating an estimated gestational age (EGA) of 6 weeks, 0 days. The gestational sac shape is within normal limits. There is a visualized yolk sac. The yolk sac measures 3 mm. The placenta is non-visualized. There is visualization of a live embryo. The crown-rump length (CRL) measures 0.2 cm, indicating an estimated gestational age (EGA) of 6 weeks, 0 days. There is demonstrated cardiac activity with a heart rate of 103 bpm. Small subchorionic hemorrhage measuring 0.6 x 0.4 x 0.2 cm. The estimated gestation age (EGA) by LMP is 5 weeks, 6 days. The estimated date of delivery (FLAVIO) by LMP is 03/30/2021. The estimated gestation age (EGA) by US is 6 weeks, 0 days. The estimated date of delivery (FLAVIO) by US is 03/29/2021. The uterus measures 6.9 x 5.8 x 3.5 cm. There is no demonstrated uterine fibroid. The cervix is closed. The right ovary measures 1.5 x 2.2 x 3.4 cm. There is no right ovarian cyst. There is no visualized right adnexal mass or complex lesion. The left ovary measures 3.6 x 1.5 x 1.6 cm. There is no left ovarian cyst. There is no visualized left adnexal mass or complex lesion. There is minimal fluid in the cul de sac. US/Transvaginal w/Preg US IMPRESSION: Single living intrauterine gestation with an estimated gestational age by ultrasound of 6 weeks 0 days. Estimated date of delivery March 29, 2021. Small subchorionic hemorrhage. Electronically Signed: Peter Doll MD at 0:30 EDT , Service support ,
--- NOTE | 2020-08-03 22:05 | ED.VIS.FEGU ---
HPI HPI - Female History of Present Illness Chief Complaint: Vag Bld, Preg Informant: patient Pain Pain: Positive for Pelvic Pain Onset: Today Context: Gradual Onset Timing: Continuous Quality: Positive for Cramping Current Severity: Moderate Maximum Severity: Moderate Bleeding Issue: Positive for Vaginal bleeding Onset: Today Current Severity: Spotting and Mild Associated Symptoms Test: Positive P: 0 Narrative Narrative: The patient is a 24-year-old female at approximately 6-1/2 weeks gestation who presents to the emergency department with abdominal pain, cramping, and vaginal bleeding. The patient was actually seen here a few days ago. She had an ultrasound which showed gestational sac, but no poles. She states that started today. She states less than a normal period. She denies any sexual activity. She is otherwise been in her normal state of health. [facility] Medical History Seizure SVT (supraventricular tachycardia) Home Medications topiramate 100 mg PO DAILY 01/30/20 [History Last Taken Unknown] folic acid 0.8 mg PO DAILY 05/19/20 [History Last Taken Unknown] ondansetron 4 mg PO Q8H PRN PRN #10 tab 07/14/20 [Rx Last Taken Unknown] levetiracetam 750 mg PO BID 08/03/20 [History Last Taken Unknown] Allergy/AdvReac Type Severity Reaction Status Date / Time quetiapine [From Seroquel] Allergy Vomiting Verified 08/03/20 21:49 risperidone [From Risperdal] Allergy Swelling Verified 08/03/20 21:49 Sulfa (Sulfonamide Allergy Anaphylaxis Verified 08/03/20 21:49 Antibiotics) Social History Smoking Status: Current every day smoker tobacco type: cigarettes and e-cigarettes ROS ROS ED Constitutional Constitutional ED: Denies chills or fever(s) Eyes Eyes: Denies blurry vision or change in vision ENT ENT ED: Denies ear pain or sore throat Cardiovascular Cardiovascular: Denies chest pain or palpitations Respiratory/Chest Respiratory/Chest: Denies cough, dyspnea or dyspnea on exertion Gastrointestinal Gastrointestinal: Denies abdominal pain, nausea or vomiting Genitourinary Genitourinary ED: Denies dysuria or urinary frequency Musculoskeletal Musculoskeletal: Denies arthralgias or myalgias Integumentary Denies rash Neurologic Neurologic: Denies headache(s) or paresthesias Psychiatric Psychiatric: Denies anxiety or depression Endocrine Endocrinology: Denies polydipsia or polyuria Allergic/Immunologic Allergic/Immunologic ED: Denies urticaria EXAM Physical Exam Const Vital Signs: 08/03/20 21:47 Temperature 98.0 F Temperature Source Temporal Pulse Rate 100 Respiratory Rate 18 Blood Pressure 125/85 H Blood Pressure Mean 98 Pulse Ox 96 Oxygen Delivery Method Room Air Positive well nourished and well developed General Appearance ED: well developed HEENT Reports normocephalic, head/scalp atraumatic and moist mucous membranes Eyes PERRL and EOMs intact bilaterally Neck no lymphadenopathy and supple General: Negative for tenderness Chest Wall inspection of chest normal Resp normal respiratory effort and clear to auscultation bilaterally Cardio regular rate, regular rhythm and no murmurs GI normal to inspection, nondistended, normoactive bowel sounds Palpation: Negative for tender, guarding or rebound tenderness present Back/Spine no CVA tenderness Cervical Spine: Negative for cervical spine tenderness Thoracic Spine / Upper Back: Negative for thoracic spinal tenderness Extremity normal to inspection General Extremety ED: Negative for tenderness Neuro oriented x3 and CN's II-XII intact bilaterally Neuro Narrative: No focal deficits appreciated. Sensorium / Orientation: alert Psych mental status grossly normal Skin no rashes or lesions noted, no wounds and skin turgor normal MDM MDM MDM Narrative Medical decision making narrative: Patient presents with vaginal bleeding in . I did attempt bedside ultrasound. I was unable to visualize anything. With the bleeding and cramping, I did repeat formal ultrasound. There were single live intrauterine heart rates in the 100s. There is no free fluid. She does have small ovarian cyst. Labs are unremarkable. Quant continues to elevate. At this point, the patient was counseled on risk of miscarriage. She will follow up with OB. Impression 1. Vaginal bleeding Lab Data Attestation: I reviewed the patient's lab results. Labs: Laboratory Results - last 24 hr 08/03/20 08/03/20 08/03/20 22:15 22:15 22:15 WBC 9.9 RBC 4.54 Hgb 13.1 Hct 39.4 MCV 86.8 MCH 28.9 MCHC 33.2 RDW Std Deviation 38.3 RDW Coeff of Brandee 12.1 Plt Count 325 MPV 11.2 Immature Gran % (Auto) 0.400 Neut % (Auto) 55.6 Lymph % (Auto) 31.2 [place] % (Auto) 9.4 Eos % (Auto) 2.7 Baso % (Auto) 0.7 Absolute Neuts (auto) 5.5 Absolute Lymphs (auto) 3.10 Nucleated RBC % 0 HCG, Quant 65727 H Urine Color Yellow Urine Clarity Clear Urine pH 6.0 Ur Specific [place] 1.025 Urine Protein 30 H Urine Glucose (UA) Normal Urine Ketones 15 H Urine Occult Blood 10 H Urine Nitrite Negative Urine Bilirubin Negative Urine Urobilinogen 1 H Ur Leukocyte Esterase Negative Urine RBC 0-5 SEEN Urine WBC 0-5 SEEN Ur Squamous Epith Cells 0-5 SEEN Urine Bacteria 1+ Urine Mucus 2+ Discharge Plan Triage Chief Complaint: Vag Bld, Preg ED Provider: Jacques Moreno Dx/Rx/DC Orders Instructions: ED Possible Miscarriage ... Prescriptions: No Action topiramate 50 MG tablet 100 mg PO DAILY RF: 0 folic acid 0.8 MG tablet 0.8 mg PO DAILY RF: 0 ondansetron 4 mg tablet,disintegrating 4 mg PO Q8H PRN PRN (Reason: Nausea) Qty: 10 RF: 0 levetiracetam 500 mg tablet 750 mg PO BID RF: 0 Primary Care Provider: Stevie Dixon NP Referrals: Stevie Dixon NP, DENTAL HYGIENIST [employer]BILE COORDINATOR-C [Primary Care Provider] -
[2020-08-03 22:25] LABS: Absolute Neutrophil Count 5.5 X10^3/uL (2.0-7.7); Basophil# 0.07 X10^3/uL; Basophil% 0.7 % (0-1); Eosinophil# 0.27 X10^3/uL; Eosinophils% 2.7 % (0-5); Hematocrit 39.4 % (37-47); Hemoglobin 13.1 g/dL (12.0-15.0); Lymphocyte % 31.2 % (19-41); Mean Corp Hgb Conc 33.2 g/dL (32-36); Mean Corpuscular Hgb 28.9 pg (27.0-32.0); Mean Corpuscular Volume 86.8 fL (81-99); Mean Platelet Vol. 11.2 fl (6.2-12.0); Monocyte# 0.93 X10^3/uL; Monocyte% 9.4 % (0-10); NRBC Flagged by Analyzer 0 % (0-5); Neutrophil # 5.53 X10^3/uL (2.7-7.7); Neutrophil % 55.6 % (47-70); Platelet Count 325 K/mm3 (150-450); RBC Distribution Width CV 12.1 % (11.6-14.6); RBC Distribution Width SD 38.3 fl (35.1-43.9); Red Blood Count 4.54 M/mm3 (4.2-5.4); White Blood Count 9.9 K/mm3 (4.4-11.0)
[2020-08-03] MEDS: 0.9% Normal Saline 1,000 ML 1000 ML IV (22:25)
[2020-08-03 22:36] LABS: Color, Urine Yellow (Yellow); Glucose, Dipstick Normal (Normal); Ketone-Dipstick 15 mg/dl (Negative); Leukocyte Esterase-Dipstick Negative /ul (Negative); Nitrite-Dipstick Negative (Negative); Occult Blood-Urine 10 /ul (Negative); Protein-Dipstick 30 mg/dl (Negative); Specific Gravity, Urine 1.025 (1.002-1.030); Urine Bilirubin Dipstick Negative (Negative); Urine Clarity Clear (Clear); Urine Urobilinogen 1 mg/dl (Normal)
[2020-08-03 22:52] LABS: Bacteria 1+ /hpf (None Seen); Mucous, Urine 2+ /hpf (<or=2+); Red Blood Cells-Urine 0-5 SEEN /hpf (0-5); Squamous Epithelial Cells - UA 0-5 SEEN /hpf (5-10); White Blood Cells 0-5 SEEN /hpf (0-5)
[2020-08-03 22:56] LABS: hCG Titer Quant., Serum 19451 mIU/mL (1-3)
[2020-08-03 23:46] VITALS: PULSE 88; RESP 16; O2SAT 98
== END 2020-08-03 23:47 | disposition home or self-care (01) ==
PROVIDERS: Emergency Provider Emergency Medicine; PCP Nurse Practitioner Family
DX: O46.91 Antepartum hemorrhage, unspecified, first trimester (principal); O99.331 Smoking (tobacco) complicating pregnancy, first trimester; O99.891 Other specified diseases and conditions complicating pregnancy; F17.210 Nicotine dependence, cigarettes, uncomplicated; R56.9 Unspecified convulsions; Z3A.01 Less than 8 weeks gestation of pregnancy; Z79.899 Other long term (current) drug therapy
CPT/HCPCS: 76817; 81001; 84702; 85025; 99283; J7030; A4216